=== PATIENT | male | born 1985 | race Caucasian/White ===

== ENCOUNTER 2017-03-29 11:44 | Emergency (ER) | payer OTHER ==
--- OUTSIDE RECORDS SUMMARY | 2017-03-29 12:39 | XMS REPORT ---
:1985 External Reference #:[id number] Author Organization [facility] Address [address] [address] Phone [phone] Care Team Providers Name Role Phone Benjamín Alejandre MD Primary Care Physician Unavailable Payers Type Date Identification Numbers Payment Provider Subscriber Commercial Effective: Policy Number: Froy Guerra 2016 [id number] Group Number: [id number] [address] PayID: [id number] [place] [address] Medigap Part B Expires: 2016 Policy Number: [id number] Medicaid Joshua Lockwood Group Name: 1 Nato [address] PayID: [id number] [place] [address] Commercial Expires: 2016 Policy Number: [id number] Froy Guerra Group Name: [id number] [address] PayID: [id number] [place] [address] Workers Compensation Onset: 2013 Policy Number: Patricia Guerra [id number] [employer] Group Number: [id number] [address] Group Name: [id number] [place] [address] PayID: [id number] Medigap Part B Expires: 2016 Group Name: 1 1 Medicaid Joshua Lockwood PayID: [id number] [address] [place] [address] Problems Date Description Provider Status Onset: 10/07/2014 Lateral epicondylitis Fide Alcaraz M.D. Active Onset: 03/30/2016 Insomnia Benjamín Alejandre M.D.,FACP Active Onset: 08/22/2016 Family hx of ischem heart dis Josh Cook M.D. Active and oth dis of the circ sys Onset: 02/13/2017 Late effect of open wound of Willy Stoddard MD Active extremities without tendon injury Onset: 02/13/2017 Bilateral carpal tunnel syndrome Willy Stoddard MD Active Family History Date Family Member(s) Problem(s) Comments General [place] Father Heart Disease at the age of 38yrs Siblings 2 Social History Type Date Description Comments Marital Status Single Lives With Girlfriend Lives With Children Occupation Ho Occupation Currently Working [employer] Cigarette Use Former Cigarette Smoker ETOH Use Currently consumes alcohol ETOH Use Occasionally consumes alcohol Smoking Patient is a former smoker Started age 22;Quit April 2014; smoked max 2ppd & cigars occasionally Recreational Drug Use Denies Drug Use Exercise Type/Frequency Exercises sporadically General Hx Text 2 kids, 1 step Allergies, Adverse Reactions, Alerts Date Description Reaction Status Severity Comments 08/27/2013 NKDA active Medications Medication Date Status Form Strength Qnty SIG Indications Ordering Provider Meloxicam Active Tablets 7.5mg 60tabs 1 by mouth Benjamín 017 twice a D. Pili, day as M.D.,FACP needed Zolpidem Active Tablets 10mg 30tabs 1/2 to 1 Benjamín Tartrate 016 tab by Jered Alejandre, mouth M.D.,FACP every night at bedtime as needed Oxycodone-Acet Active Tablets 5-325mg 40tabs 1 tabs by M77.11 Benjamín aminophen 016 mouth 4 Jered Alejandre, times a M.D.,FACP day as needed for pain M25.522 Triamcinolone 05/01/ Hx Cream 0.5% 30gm apply twice S40.86 Ken Odell NP Acetonide 2017 - daily to the 2D 09/06/ affected area 2017 Percocet 01/16/ Hx Tablets 5-325m 45tabs 1 by mouth bid Fide 2016 - g kelly Alcaraz M.D. 2016 Ketorolac 01/15/ Hx Tablets 10mg 10tabs No longer Fide Tromethamine 2016 - taking. one Tere Alcaraz 09/06/ tablet every 8 2017 hours for pain as needed Percocet 01/15/ Hx Tablets 2.5-32 2tabs one tablet Fide 2016 - 5mg every 8 hours Tere Alcaraz 03/30/ as needed for 2017 pain Trazodone HCL 05/17/ Hx Tablets 50mg 60tabs 1-2 tablets at G47.00 Ken Odell NP 2016 - bedtime as 06/10/ needed. 2016 Lidoderm 04/07/ Hx Patches 5% 30unit apply daily as M25.52 Fide 2016 - s needed for 2 Tere Alcaraz 05/17/ elbow pain 2016 remove after 12 hours, wait [address] another Oxycodone-Acetaminop 02/03/ Hx Tablets 5-325m 15tabs 1 tab by mouth gardenia Chavez 2014 - 2- 3 times a M.D. 04/13/ day as needed 2015 for pain Oxycodone-Acetaminop 01/20/ Hx Tablets 5-325m 30tabs 1 tab by mouth Fide varner 2014 - bid as needed Tere Alcaraz 04/13/ for pain 2015 Oxycodone-Acetaminop 10/28/ Hx Tablets 5-325m 15tabs 1 tabs by gardenia Pierce 2014 - mouth every 8 M.D. 04/13/ hours as 2015 needed pain No Active 10/07/ Hx Unknown Medications 2014 - 2014 Oxycodone-Acetaminop 10/07/ Hx Tablets 5-325m 20tabs 1 by mouth q 8 726.32 gardenia Pierce 2014 - hours prn pain M.D. 2014 Oxycodone-Acetaminop 09/23/ Hx Tablets 5-325m 80tabs take 1 to 2 gardenia Gibbons 2014 - tablets by Agustina.DAnne 10/05/ mouth every 6 2014 to 8 hours as needed pain Hydrocodone-Acetamin 09/16/ Hx Tablets 5-325m 30tabs 1-2 by mouth Fide becerril 2014 - g q4-6 hour as Tere Alcaraz 10/05/ needed pain 2014 Amoxicillin 09/16/ Hx Capsules 12caps Fide 2014 Mateus Alcaraz M.D. 2014 No Active 07/15/ Hx Unknown Medications 2014 - 2014 Gabapentin 04/22/ Hx Capsules 100mg 90caps 1 by mouth Fide 2015 - three times a Tere Alcaraz day 2014 No Active 02/02/ Hx Unknown Medications 2013 - 2013 Hydrocodone-Acetamin 02/02/ Hx Tablets 5-325m 30tabs 1by mouth q6 Fide ophen 2014 - g hour as needed Tere Alcaraz 05/05/ pain 2014 Tramadol 09/03/ Hx Tablets 37.5-3 20tabs 1 tablets Fide Hydrochloride/Acetam 2014 - 25mg every 6 hours Tere Alcaraz inophen 02/02/ as needed pain 2013 Oxycodone-Acetaminop 08/27/ Hx Tablets 5-325m 20tabs 1 by mouth Fide hen 2014 - g q4-6 hour as Tere Alcaraz 02/02/ needed pain 2013 Oxycodone HCL / Hx Tablets 30tabs 1-2 by mouth Unknown 0000 - four times a day as needed 2013 Meloxicam / Hx Tablets 15mg 30tabs 1 by mouth Unknown 0000 - every day 2013 Vicodin / Hx Tablets 5-500m 1 every 4-6 Unknown 0000 - g hours as 10/05/ needed 2014 Ibuprofen 00/00/ Hx Tablets 800mg by mouth three Unknown 0000 - times a day as needed 2015 Amoxicillin /00/ Hx Tablets 875mg 1 by mouth Unknown 0000 - twice a day 2015 Ibuprofen /00/ Hx Capsules 200mg as needed Unknown 0000 - 2016 Medications Administered in Office Medication Date Status Form Strength Qnty SIG Indications Ordering Provider Depomedrol Administered Injection Fide 80MG 015 Tere Alcaraz Immunizations CPT Code Status Date Vaccine Lot # [id number] Given 08/07/2016 Tetanus And Diptheria (Td) For Adult Use Preservative Free Vital Signs Date Vital Result Comment 03/06/2017 Weight 235.00 lb w/boots on Heart Rate 116 /min BP Systolic Sitting 160 mmHg BP Diastolic Sitting 90 mmHg O2 % BldC Oximetry 98 % 02/13/2017 Height 70.5 inches 5'10.50" Weight 237.00 lb Heart Rate 90 /min BP Systolic 140 mmHg BP Diastolic 86 mmHg Body Temperature 98.6 F BMI (Body Mass Index) 33.5 kg/m2 01/30/2017 Weight 240.00 lb Heart Rate 100 /min BP Systolic Sitting 150 mmHg BP Diastolic Sitting 88 mmHg Body Temperature 98.4 F O2 % BldC Oximetry 98 % 10/20/2016 Weight 237.25 lb Heart Rate 115 /min BP Systolic Sitting 150 mmHg BP Diastolic Sitting 98 mmHg BP Systolic Recheck 136 mmHg BP Diastolic Recheck 104 mmHg Body Temperature 98.4 F O2 % BldC Oximetry 99 % 09/06/2016 Weight 229.38 lb Heart Rate 118 /min BP Systolic Sitting 160 mmHg BP Diastolic Sitting 86 mmHg Body Temperature 96.7 F O2 % BldC Oximetry 98 % 08/22/2016 Weight 232.00 lb Heart Rate 104 /min BP Systolic Sitting 140 mmHg BP Diastolic Sitting 94 mmHg Body Temperature 97.1 F O2 % BldC Oximetry 98 % 08/09/2016 Weight 242.38 lb Heart Rate 114 /min BP Systolic Sitting 142 mmHg BP Diastolic Sitting 90 mmHg Body Temperature 97.8 F O2 % BldC Oximetry 99 % 05/01/2016 Weight 241.00 lb with shoes Heart Rate 77 /min BP Systolic 140 mmHg BP Diastolic 100 mmHg Body Temperature 97.3 F O2 % BldC Oximetry 98 % 04/28/2016 Height 72 inches 6'0" Weight 228.38 lb Heart Rate 108 /min BP Systolic Sitting 122 mmHg BP Diastolic Sitting 94 mmHg Body Temperature 98.3 F O2 % BldC Oximetry 98 % BMI (Body Mass Index) 31.0 kg/m2 01/17/2016 Height 72 inches 6'0" Weight 235.00 lb Pain Level 8 BMI (Body Mass Index) 31.9 kg/m2 01/14/2016 Height 72 inches 6'0" Weight 235.00 lb Heart Rate 74 /min BP Systolic 142 mmHg BP Diastolic 86 mmHg Body Temperature 97.6 F O2 % BldC Oximetry 96 % BMI (Body Mass Index) 31.9 kg/m2 12/02/2015 Weight 240.00 lb Heart Rate 86 /min BP Systolic Sitting 130 mmHg BP Diastolic Sitting 84 mmHg Respiratory Rate 15 /min Body Temperature 98.6 F O2 % BldC Oximetry 98 % 12/01/2015 Height 72 inches 6'0" Weight 230.00 lb Pain Level 5 BMI (Body Mass Index) 31.2 kg/m2 10/06/2015 Height 72 inches 6'0" Weight 230.00 lb Heart Rate 72 /min BP Systolic 140 mmHg BP Diastolic 78 mmHg Pain Level 7 BMI (Body Mass Index) 31.2 kg/m2 08/25/2015 Heart Rate 80 /min BP Systolic Sitting 128 mmHg BP Diastolic Sitting 82 mmHg 06/23/2015 Heart Rate 82 /min BP Systolic Sitting 128 mmHg BP Diastolic Sitting 88 mmHg 05/26/2015 Heart Rate 80 /min BP Systolic Sitting 128 mmHg BP Diastolic Sitting 80 mmHg 05/18/2015 Heart Rate 91 /min BP Systolic Sitting 130 mmHg BP Diastolic Sitting 82 mmHg O2 % BldC Oximetry 99 % 04/14/2015 Height 71 inches 5'11" Weight 248.00 lb Heart Rate 91 /min BP Systolic Sitting 130 mmHg BP Diastolic Sitting 88 mmHg Body Temperature 97.9 F O2 % BldC Oximetry 98 % BMI (Body Mass Index) 34.6 kg/m2 04/07/2015 Heart Rate 78 /min BP Systolic Sitting 132 mmHg BP Diastolic Sitting 88 mmHg 03/10/2015 Heart Rate 80 /min BP Systolic Sitting 128 mmHg BP Diastolic Sitting 88 mmHg 02/03/2015 Heart Rate 84 /min BP Systolic Sitting 148 mmHg BP Diastolic Sitting 84 mmHg 01/20/2015 Height 72 inches 6'0" Weight 255.00 lb Heart Rate 96 /min BP Systolic Sitting 152 mmHg BP Diastolic Sitting 96 mmHg BMI (Body Mass Index) 34.6 kg/m2 12/23/2014 Weight 212.00 lb Heart Rate 88 /min BP Systolic Sitting 128 mmHg BP Diastolic Sitting 88 mmHg 11/25/2014 Heart Rate 80 /min BP Systolic Sitting 122 mmHg BP Diastolic Sitting 88 mmHg 10/28/2014 Heart Rate 88 /min BP Systolic Sitting 128 mmHg BP Diastolic Sitting 74 mmHg 09/16/2014 Height 72 inches 6'0" Weight 212.00 lb Heart Rate 80 /min BP Systolic Sitting 124 mmHg BP Diastolic Sitting 82 mmHg BMI (Body Mass Index) 28.7 kg/m2 08/12/2014 Heart Rate 64 /min BP Systolic Sitting 124 mmHg BP Diastolic Sitting 82 mmHg 07/15/2014 Heart Rate 76 /min BP Systolic Sitting 128 mmHg BP Diastolic Sitting 88 mmHg 06/24/2014 Heart Rate 88 /min BP Systolic Sitting 130 mmHg BP Diastolic Sitting 88 mmHg 06/08/2014 Heart Rate 104 /min BP Systolic Sitting 158 mmHg BP Diastolic Sitting 92 mmHg 05/06/2014 Heart Rate 84 /min BP Systolic Sitting 130 mmHg BP Diastolic Sitting 88 mmHg 04/22/2014 Heart Rate 88 /min BP Systolic Sitting 132 mmHg BP Diastolic Sitting 78 mmHg 09/03/2013 Heart Rate 80 /min BP Systolic Sitting 128 mmHg BP Diastolic Sitting 80 mmHg 08/27/2013 Height 72 inches 6'0" Weight 210.00 lb Heart Rate 80 /min BP Systolic Sitting 126 mmHg BP Diastolic Sitting 82 mmHg BMI (Body Mass Index) 28.5 kg/m2 Results Test Date Test Result H/L Range Note Lipid Profile (Trig/Chol/HDL) 01/30/2017 Triglycerides 331 mg/dL 1 Cholesterol 187 mg/dL 2 HDL Cholesterol 30.8 mg/dL 3 LDL Cholesterol 90 mg/dL 4 Comp Metabolic Panel 01/30/2017 Sodium 137 mmol/L 133-145 Potassium 3.9 mmol/L 3.5-5.0 Chloride 104 mmol/L 101-111 Co2 Carbon Dioxide 27 mmol/L 22-32 Anion Gap 6 mmol/L 2-11 Glucose 87 mg/dL 70-100 Blood Urea Nitrogen 12 mg/dL 6-24 Creatinine 0.92 mg/dL 0.67-1.17 BUN/Creatinine Ratio 13.0 8-20 Calcium 9.3 mg/dL 8.6-10.3 Total Protein 7.2 g/dL 6.4-8.9 Albumin 4.6 g/dL 3.2-5.2 Globulin 2.6 g/dL 2-4 Albumin/Globulin Ratio 1.8 1-3 Total Bilirubin 0.50 mg/dL 0.2-1.0 Alkaline Phosphatase 48 U/L 34-104 Alt 29 U/L 7-52 Ast 21 U/L 13-39 Egfr Non- 96.6 >60 Egfr 124.2 >60 5 Drug Abuse 20 Urine 04/28/2016 Urine Amphetamine Negative ng/mL 6 Urine Barbiturates Negative ng/mL 7 Urine Benzodiazepines Negative ng/mL 8 Urine Cocaine Negative ng/mL 9 Urine Phencyclidine Negative ng/mL Cutoff: 25 Urine Tetrahydrocannabinol Negative ng/mL Cutoff: 50 10 Creatinine 250.6 mg/dL Specific [place] 1.019 pH 6.1 Oxidants Negative 11 Adulterants Comment Normal Codeine, Ur Not Detected ng/mL Cutoff: 25 12 Hksudcu-1-akih-glucuronide, Ur Not Detected ng/mL 13 Morphine, Ur Not Detected ng/mL Cutoff: 25 14 Phvpiqrm-7-ievi-glucuronide, U Not Detected ng/mL 15 6-monoacetylmorphine, Ur Not Detected ng/mL Cutoff: 25 16 Hydrocodone, Ur Present ng/mL Cutoff: 25 17 Norhydrocodone, Ur Present ng/mL Cutoff: 25 18 Dihydrocodeine, Ur Not Detected ng/mL Cutoff: 25 19 Hydromorphone, Ur Not Detected ng/mL Cutoff: 25 20 Kvtwrbbpkstrs9uptxxiumnsooloy Present ng/mL 21 Oxycodone, Ur Present ng/mL Cutoff: 25 22 Noroxycodone, Ur Present ng/mL Cutoff: 25 23 Oxymorphone, Ur Present ng/mL Cutoff: 25 24 Nnrtfsygbfe-2-pobd-glucuronide Present ng/mL 25 Noroxymorphone, Ur Present ng/mL Cutoff: 25 26 Fentanyl, Ur Not Detected ng/mL Cutoff: 2 27 Norfentanyl, Ur Not Detected ng/mL Cutoff: 2 28 Meperidine, Ur Not Detected ng/mL Cutoff: 25 29 Normeperidine, Ur Not Detected ng/mL Cutoff: 25 30 Naloxone, Ur Not Detected ng/mL Cutoff: 25 31 Djaayioc-8-kycp-glucuronide, U Not Detected ng/mL 32 Methadone, Ur Not Detected ng/mL Cutoff: 25 33 Eddp, Ur Not Detected ng/mL Cutoff: 25 34 Propoxyphene, Ur Not Detected ng/mL Cutoff: 25 35 Norpropoxyphene, Ur Not Detected ng/mL Cutoff: 25 36 Tramadol, Ur Not Detected ng/mL Cutoff: 25 37 O-desmethyltramadol, Ur Not Detected ng/mL Cutoff: 25 38 Tapentadol, Ur Not Detected ng/mL Cutoff: 25 39 N-desmethyltapentadol, Ur Not Detected ng/mL Cutoff: 50 40 Jmgistwvke-bcrg-alwymuamqjj, U Not Detected ng/mL 41 Buprenorphine, Ur Not Detected ng/mL Cutoff: 5 42 Norbuprenorphine, Ur Not Detected ng/mL Cutoff: 5 43 Norbuprenorphine glucuronide Not Detected ng/mL Cutoff: 20 44 Opioid Interpretation See Comment 45 Laboratory test finding 09/22/2014 Surgical Pathology SEE RESULT BELOW 46 1 Desirable: <150 Borderline High: 150-199 High: 200-499 Very High: >500 2 Desirable: <200 Borderline High: 200-239 High: >239 3 Low: <40 Desirable: 40-60 High: >60 4 Desirable: <100 Near Optimal: 100-129 Borderline High: 130-159 High: 160-189 Very High: >189 5 Because ethnic data is not always readily available, this report includes an eGFR for both -Americans and non- Americans. The National Kidney Disease Education Program (NKDEP) does not endorse the use of the MDRD equation for patients that are not between the ages of 18 and 70, are , have extremes of body size, muscle mass, or nutritional status, or are non- or non-. According to the National Kidney Foundation, irrespective of diagnosis, the stage of the disease is based on the level of kidney function: Stage Description GFR(mL/min/1.73 m(2)) 1 Kidney damage with normal or decreased GFR 90 2 Kidney damage with mild decrease in GFR 60-89 3 Moderate decrease in GFR 30-59 4 Severe decrease in GFR 15-29 5 Kidney failure <15 (or dialysis) 6 REFERENCE VALUE Cutoff: 500 7 REFERENCE VALUE Cutoff: 200 8 REFERENCE VALUE Cutoff: 100 9 REFERENCE VALUE Cutoff: 150 10 ADDITIONAL INFORMATION This report is intended for use in clinical monitoring or management of patients. It is not intended for use in employment-related testing. 11 REFERENCE VALUE Cutoff: 200 mg/L 12 Tylenol 3 13 Metabolite of codeine REFERENCE VALUE Cutoff: 100 14 Chanel Edmonds, MS Contin; Also a minor metabolite (10%) of codeine and can be seen in low concentrations (<2,000 ng/mL) with poppy seed ingestion. 15 Metabolite of morphine REFERENCE VALUE Cutoff: 100 16 Metabolite of heroin 17 Lortab, [place], Vicodin; Also a very minor metabolite of codeine and impurity (<1%) of oxycodone. 18 Metabolite of hydrocodone 19 Metabolite of hydrocodone 20 Dilaudid, Exalgo; Also a metabolite of hydrocodone and a minor (<5%) metabolite of morphine. 21 Metabolite of hydromorphone REFERENCE VALUE Cutoff: 100 22 Endocet, Percocet, Oxycontin 23 Metabolite of oxycodone 24 Numorphan, Opana; Also a metabolite of oxycodone. 25 Metabolite of oxymorphone REFERENCE VALUE Cutoff: 100 26 Metabolite of oxymorphone 27 Actiq, Duragesic, [place]ent[place] 28 Metabolite of fentanyl 29 Demerol 30 Metabolite of meperidine 31 Narcan 32 Metabolite of naloxone REFERENCE VALUE Cutoff: 100 33 Dolophine 34 Metabolite of methadone 35 Darvon, Darvocet 36 Metabolite of propoxyphene 37 Tradol, Ultram, Ultracet 38 Metabolite of tramadol 39 Nucynta 40 Metabolite of tapentadol 41 Metabolite of tapentadol REFERENCE VALUE Cutoff: 100 42 Buprenex, Suboxone 43 Metabolite of buprenorphine 44 Metabolite of buprenorphine 45 Test detected the presence of hydrocodone, one of its metabolites (norhydrocodone), and nsohlaqfktdtx-5-dwvi-glucuronide (metabolite of hydromorphone). Suspect use of hydrocodone and hydromorphone within the past three days. Trace amounts of hydrocodone can also be found as an impurity in hydromorphone. Test detected the presence of oxycodone and several metabolites (noroxycodone, oxymorphone, noroxymorphone, and elkgisonlva-2-gzqg-glucuronide). Suspect use of oxycodone or possibly oxycodone and oxymorphone within the past three days. ADDITIONAL INFORMATION This test was developed and its performance characteristics determined by [facility] in a manner consistent with CLIA requirements. This test has not been cleared or approved by the U.S. Food and Drug Administration. Test Performed by: [facility] [employer] - [address] [address] 46 SEE RESULT BELOW Name: GREYSON GUERRA : [address]: Fide Alcaraz MD Acct: [id number] Unit: [id number] AGE: 28 Location: [facility] Re09/22/14 SEX: M Status: REG [facility] SPEC: [id number] TAYLOR: 09/22/14-[address]: Fide Alcaraz MD REQ: [id number] RECD: 09/22/14 STATUS: SOUT _ ORDERED: LEVEL III FINAL DIAGNOSIS Right lateral elbow tissue, resection: -- Articular cartilage with marked degenerative features and bone. -- Synovial tissue with fibrosis and neovascularization with myxoid degeneration. -- Incidental skeletal muscle fragments. PRE-OPERATIVE DIAGNOSIS Right elbow lateral epicondylitis GROSS DESCRIPTION The specimen is received in formalin labeled, Right Lateral Elbow Tissue, and consists of a 1.4 x 1.2 x 0.4 cm aggregate of rios-wasserman irregular rubbery soft tissue fragments and scant fat. The specimen is submitted entirely in one cassette. Signed (signature on file) Jasbir Hemphill MD 1237 END OF REPORT * ML=Testing performed at Main Lab DEPARTMENT OF PATHOLOGY, [address] [address] Jasbir Hemphill M.D. Director [facility] # [id number] Procedures Date CPT Code Description Status 09/22/2014 04030 Tenotomy Elbow Debridement W/Tendon Repair Or Completed Reattachement 07/15/2014 Injection Single Tendon Origin/Insertion Completed 07/15/2014 Injection Single Tendon Origin/Insertion Completed 02/02/2014 66350 Rad Exam; Elbow, Comp Completed 02/02/2014 21992 Rad Exam; Elbow, Comp Completed 09/22/2013 43529 Rad Exam; Wrist, Comp, Min 3 Views Completed 09/03/2013 44279 Rad Exam; Wrist, Comp, Min 3 Views Completed Encounters Type Date Location Provider CPT E/M Dx Office Visit 02/13/2017 [place] [address] S66.123D 1:45p Of C.M.AAnne G56.03 Office Visit 01/30/2017 11:40a [facility] Benjamín Alejandre, 09552 S61.213S Rukhsana hCand M.D.,FACP Z82.49 Office Visit 10/20/2016 2:20p [facility] Benjamín Alejandre, 51308 S61.213S Medicine Mateus Tbcristóbal Bai M.D.,FACP Office Visit 09/06/2016 1:30p [facility] Benjamín Alejandre, 88452 S61.213D Rukhsana Ignacio Tbcristóbal Bai M.D.,FACP Office Visit 08/22/2016 11:20a [facility] Josh Cook [address], M.D. F41.0 G47.00 Office Visit 08/09/2016 9:50a [facility] Benjamín Alejandre, 64918 S61.213A Rukhsana Ignacio Tbcristóbal Bai M.D.,FACP Office Visit 05/01/2016 9:00a [facility] [place] [address] G47.00 Rukhsana Chand S40.862D Office Visit 04/28/2016 1:00p [facility] Josh Cook 21860 M25.522 Medicine - Tbcristóbal Bai M.D. Office Visit 01/17/2016 11:30a [facility] Fide Alcaraz, 51859 M25.521 Of C.M.A. M.DAnne M25.522 M77.11 M77.12 Office Visit 01/14/2016 9:40a [facility] [place] [address] M25.521 [place] M25.522 Office Visit 12/02/2015 9:20a [facility] [place] [address] G47.00 - [place] Office Visit 12/01/2015 11:30a [facility] Fide Alcaraz, 31918 M77.11 Of C.M.A. M.D M77.12 G56.23 G56.21 G56.22 M77.11 M77.12 G56.23 Office Visit 10/06/2015 11:10a [facility] Fide Alcaraz 25093 M77.11 Of [facility] M77.12 G56.21 G56.22 G56.01 G56.02 Office Visit 08/25/2015 11:10a [facility] Fide Alcaraz, 70964 M77.11 Of [facility] M77.11 M77.12 M77.12 G56.21 G56.21 G56.22 G56.22 Office Visit 06/23/2015 3:00p [facility] Fide Alcaraz 95661 M77.11 Of [facility] M77.11 M77.12 M77.12 G56.21 G56.21 G56.22 G56.22 Office Visit 05/26/2015 1:40p [facility] Anuja Easton, 34584 M25.521 Of [facility] Office Visit 05/18/2015 9:40a [facility] [place] [address] G47.00 - [place] Office Visit 04/14/2015 2:00p [facility] Medicine Josh Cook 94101 Z00.00 - [facility] M77.10 E66.9 Office Visit 04/07/2015 2:40p [facility] Fide Alcaraz 69394 M77.11 Of [facility] Office Visit 03/10/2015 9:20a [facility] Anuja Easton 94710 M25.522 Of [facility] M25.521 G56.02 Office Visit 02/03/2015 10:45a [facility] Fide Alcaraz 77425 M77.12 Of [facility] M77.11 Office Visit 01/20/2015 11:00a [facility] Of Anuja Easton 45632 M77.12 [facility] M77.11 Office Visit 08/12/2014 9:30a [facility] Fide Alcaraz 52341 726.32 Of [facility] Office Visit 07/15/2014 9:30a [facility] Fide Alcaraz 76897 842.00 Of [facility] 842.00 726.32 726.32 Office Visit 02/02/2014 8:15a [facility] Fide Alcaraz 66597 719.43 Of [facility] 719.43 354.2 354.2 726.32 Office Visit 09/22/2013 8:45a [facility] Fide Alcaraz 57740 923.20 Of [facility] Office Visit 09/03/2013 8:00a [facility] Fide Alcaraz 24208 923.20 Of [facility] Office Visit 08/27/2013 10:30a [facility] Fide Alcaraz 99887 923.20 Of [facility] Plan of Care Future Appointment(s):03/27/2017 8:15 am - Willy Stoddard MD at [facility]/23/2018 - Benjamín Alejandre M.D.,FACPM25.511 Pain in right shoulderNew Therapy:Physical TherapyComments:This is rhomboid spasm. Continue treatment w/ meloxicam, heat, and massage to area. Cut back on heavy lifting. Can refill oxycodone for hand pain. See Dr. Stoddard as planned.
[2017-03-29 13:46] VITALS: BP 147/71
--- NOTE | 2017-03-29 13:48 | UC ---
Back Pain HPI - HPI Summary HPI Summary: 31 y/o male presents to the urgent care c/o lower back pain s/p falling on the front steps of his house yesterday around 1700PM. Pt reports he has Hx of B/L carpel tunnel syndrome and Rt elbow tendonitis s/p surgery for which he takes pain medication Rx by DR Benjamín Alejandre. He took some [place] yesterday to alleviate pain but this morning pain is worse w/ bending, lifting and sitting. Reymundo is 9/10 sharp and spasmodic radiating to the upper back at times. Pt denies Saddle anesthesia, urinary or fecal incontinence, urinary symptoms, abdominal pain, N/V/D, flank pain, chest pain, SOB. Pt states he also has Hx of back pain issues. . - History of Current Complaint Stated Complaint: BACK PAIN S/P FALL YESTERDAY Time Seen by Provider: 03/29/17 13:42 Onset/Duration: Sudden Onset, Lasting Days - 1 day, Still Present Timing: Constant Severity Initially: Moderate Severity Currently: Moderate Pain Intensity: 9 Pain Scale Used: 0-10 Numeric Back Pain: Is Discrete @ - lower back, Radiates To - upper back at times Character: Sharp, Spasmodic Aggravating Factor(s): Movement, Lifting, Bending, Walking Alleviating Factor(s): Rest, OTC Meds Associated Signs And Symptoms: Positive: Pain with Weight Bearing. Negative: Swelling, Redness, Bruising, Fever, Weakness, Numbness, Tingling, Abdominal Pain , Flank Pain, Bladder Incontinence, Bowel Incontinence - Risk Factors AAA Risk Factors: Negative TAD Risk Factors: Negative Cauda Equina Risk Factors: Negative Epidural Abscess Risk Factors: Negative - Allergies/Home Medications Allergies/Adverse Reactions: Allergies Allergy/AdvReac Type Severity Reaction Status Date / Time No Known Allergies Allergy Verified 03/29/17 13:36 Home Medications: Home Medications Zolpidem TAB* [Ambien TAB*] 10 mg PO BEDTIME PRN 03/29/17 [History Confirmed ] oxyCODONE/Acetamin 5/325 MG* [Percocet 5/325 TAB*] 1 tab PO Q4H PRN 03/29/17 [ History Confirmed 03/29/17] PMH/Surg Hx/FS Hx/Imm Hx Previously Healthy: Yes Other Neurological History: B/L carpal tunnel s/p surgery - Surgical History Surgical History: Yes Surgery Procedure, Year, and Place: TONSILLECTOMY A CHILD. RIGHT ELBOW SURGERY - Family History Known Family History: Positive: Diabetes - Social History Occupation: Employed Full-time Lives: With Family Alcohol Use: Rare Substance Use Type: None Smoking Status (MU): Former Smoker Type: Cigarettes, Smokeless Tobacco Amount Used/How Often: 2 CANS PER WK Length of Time of Smoking/Using Tobacco: 2 years Have You Smoked in the Last Year: Yes When Did the Patient Quit Smoking/Using Tobacco: 04/12/14 Review of Systems Constitutional: Negative Skin: Negative Eyes: Negative ENT: Negative Respiratory: Negative Cardiovascular: Negative Gastrointestinal: Negative Genitourinary: Negative Motor: Negative Neurovascular: Negative Musculoskeletal: Decreased ROM - lower back, Other: - acute lower back pain s/p fall Neurological: Negative Psychological: Negative Is Patient Immunocompromised?: No All Other Systems Reviewed And Are Negative: Yes Physical Exam Triage Information Reviewed: Yes Vital Signs: Initial Vital Signs Temp 99.5 F 03/29/17 13:40 Pulse 102 03/29/17 13:40 Resp 16 03/29/17 13:40 BP 147/71 03/29/17 13:40 Pulse Ox 100 03/29/17 13:40 - Additional Comments Appearance: Well-Appearing, Well-Nourished, Thin female sitting in the examining table w/o any apparent distress. Vital Signs Reviewed: Yes Eyes: Positive: Conjunctiva Clear - PERRLA, EOMI. ENT: Positive: Normal ENT inspection, Hearing grossly normal, Pharynx normal, TMs normal, Uvula midline Neck: Positive: Supple, Nontender, No Lymphadenopathy Respiratory: Positive: Chest non-tender, Lungs clear, Normal breath sounds, No respiratory distress Cardiovascular: Positive: RRR, No Murmur, Pulses Normal, Brisk Capillary Refill Abdomen Description: Positive: Nontender, No Organomegaly, Soft. Negative: CVA Tenderness (R), CVA Tenderness (L) Bowel Sounds: Positive: Present Musculoskeletal: Positive: Strength Intact, Other: - BACK: Patient walked into the urgent care room with symmetric ambulation, Mild signs of limping, no antalgic, PT able to bear weight. No signs of trauma, No masses palpated. Point tenderness at the level of L5-S1, Rt paraspinal muscle tenderness w/ spasm at the same level. No CVAT, no flank ecchymosis . No sacroiliac notch tenderness, No saddle anesthesia.ROM: limited due to pain, Straight Leg Raise: negative. Patellar reflexes: brisk, symmetric Muscle strength lower extremities. Dorsiflexion/ plantar flexion of ankles. Heel/ toe walk. Lower extremities: Femoral, popliteal, posterior tibial, and dorsalis pedis pulses WNL. Pt refuse rectal exam Neurological: Positive: Alert, Muscle Tone Normal Psychological Exam: Normal Skin Exam: Normal Back Pain Course/Dx - Course Course Of Treatment: 31 y/o male presents to the urgent care c/o lower back pain s/p falling on the front steps of his house yesterday around 1700PM. Pt reports he has Hx of B/L carpel tunnel syndrome and Rt elbow tendonitis s/p surgery for which he takes pain medication Rx by DR Benjamín Alejandre. He took some [place] yesterday to alleviate pain but this morning pain is worse w/ bending , lifting and sitting. Reymundo is 9/10 sharp and spasmodic radiating to the upper back at times. Pt denies Saddle anesthesia, urinary or fecal incontinence, urinary symptoms, abdominal pain, N/V/D, flank pain, chest pain, SOB. Pt states he also has Hx of back pain issues. Hx obtained.PE: Point tenderness at the level of the L5-S1 and left paraspinal muscle spasm at the same level on examination. Lumbosacral X-ray ordered, Impression: Mild diffuse loss of intervertebral disc height, otherwise unremarkable lumbar spine radiogragh as per radiologist. Pt Pt given a Toradol IM inj at the clinic. Given by nurse. Pt tolerated well medication pain decrease. Pt Rx Naproxen PO, flexeril PO . Patient was instructed to the f/u wit orthopedic Dr stoddard in 1 week if symptoms do not improve or worsen. Pt's BP is elevated today advised to decrease salt in diet, monitor BP and f/u with PCP for further management. Patient is able to ambulate freely w/o aid or limp. Plan of care was discussed with the patient and patient understands and agrees. All questions were answered at patient satisfaction. Pt left clinic hemodynamically stable. - Differential Dx/Diagnosis Differential Diagnosis/HQI/PQRI: Compressive Cord Syndrome, Herniated Disc, Renal Colic, Strain, Sprain Provider Diagnoses: 1- Acute lower back pain. 2-Back spasm. 3- Elevated BP w/ o Hx of HTN Discharge - Discharge Plan Condition: Stable Disposition: HOME Prescriptions: Cyclobenzaprine TAB* [Flexeril 10 MG TAB*] 10 mg PO TID PRN #15 tab PRN Reason: Spasms - Back methylPREDNISolone [Medrol Dosepak 4 MG*] 4 mg PO .SEE LETY INSTRUCTION #1 lety Naproxen [Naproxen 500 mg] 500 mg PO Q8H PRN #30 tab PRN Reason: Pain Patient Education Materials: Acute Low Back Pain (ED), Low-Sodium Diet (ED), Muscle Spasm (ED) Forms: *Work Release Referrals: Benjamín Alejandre MD [Primary Care Provider] - 3 Days Willy Stoddard MD [Medical Doctor] - Additional Instructions: 1- Please take Naproxen PO as directed after meals for pain. 2- Take Flexeril PO as directed for muscle spasm. Please do not drive while taking the medication. 3- Wear a back support. Avoid strenuous exercise of heavy lifting. 4- Please follow up with Orthopedic Dr Stoddard or your PCP in 1 week if not improvement of symptoms, for further management. 5- Your BP is elevated today. please decrease salt in your diet, monitor BP and if it continues to be elevated please f/u with your PCP for further management
[2017-03-29] MEDS ORDERED: Ketorolac INJ* 60 MG/2 ML VIAL IM ONE (13:57)
--- NOTE | 2017-03-29 14:34 | RAD ---
HISTORY: Acute back pain status post fall COMPARISONS: September 27, 2003 VIEWS: 5 , Frontal, lateral, coned-down lateral sacral, and bilateral oblique views of the lumbar spine. FINDINGS: ALIGNMENT: The alignment is normal. VERTEBRAL BODIES: The vertebral body heights are normal. The interpedicular distances are normal. JOINTS: The facet joints are normal. INTERVERTEBRAL DISCS: There is mild diffuse loss of intervertebral disc height. SOFT TISSUE: Unremarkable. OTHER: The pelvis is unremarkable. The lung bases are clear. IMPRESSION: UNREMARKABLE RADIOGRAPHS OF THE LUMBAR SPINE
== END 2017-03-29 15:00 | disposition home or self-care (01) ==
LOC: UCCORT 11:44
DX: M54.5 Low back pain (principal); M62.830 Muscle spasm of back; W10.9XXA Fall (on) (from) unspecified stairs and steps, initial encounter; Y92.009 Unspecified place in unspecified non-institutional (private) residence as the place of occurrence of the external cause
CPT/HCPCS: 72110; 99212; G0463; J1885

== ENCOUNTER 2017-05-14 11:54 | Day surgery (SDC) | payer MEDICAID, OTHER ==
[~2017-05-14 11:54] MED LIST: Buffered Lidocaine 0.9% SYRIN* 5 ML/SYR SYRINGE INTRADERM ONE; DiMENhydriNATE IV* 50 MG/ML VIAL IV PUSH PRN; Famotidine IV* 10 MG/ML 2 ML (20 mg) IV ONE; Morphine INJ* 2 MG/ML 1 ML CARPUJECT IV PRN; Naloxone* 0.4 MG/ML 1 ML VIAL IV PRN; PROCHLORPERAZINE INJ 5 MG/ML 2 ML VIAL IV PRN
[2017-05-14] MEDS ORDERED: Famotidine IV* 10 MG/ML 2 ML (20 mg) ONE (12:01)
[2017-05-14] MEDS ORDERED: ceFAZolin 1 GM in Dextrose (*) 2 GM/100 ML BAG IVPB ONE (12:02)
[2017-05-14] MEDS ORDERED: fentaNYL* 50 MCG/ML 2 ML VIAL (100 MCG VIAL) ONE ×3 (12:43→15:33)
[2017-05-14] MEDS ORDERED: Midazolam* 1 MG/ML 5 ML VIAL (5 MG) ONE (12:43)
[2017-05-14] MEDS ORDERED: Bupivacaine 0.25% SDV* 30 ML ONE (13:13)
[2017-05-14] MEDS ORDERED: Morphine INJ* 10 MG/ML 1 ML CARPUJECT ONE (13:40)
[2017-05-14] MEDS ORDERED: Lidocaine 2% PF * 5 ML VIAL ONE (13:52)
[2017-05-14] MEDS ORDERED: Ondansetron INJ* 2 MG/ML VIAL ONE (13:52)
[2017-05-14] MEDS ORDERED: Ketorolac INJ* 30 MG/ML 1 ML VIAL ONE (13:52)
[2017-05-14] MEDS ORDERED: Propofol* 10 MG/ML 20 ML BTL IV PUSH ONE (13:52)
[2017-05-14] MEDS ORDERED: Dexamethasone IV* 4 MG/ML 1 ML (4 MG) ONE (13:52)
[2017-05-14] MEDS: fentaNYL* 50 MCG/ML 2 ML VIAL (100 MCG VIAL) IV PRN ×4 (15:35→16:12)
[2017-05-14] MEDS ORDERED: oxyCODONE/Acetamin 5/325 MG* TAB ONE ×2 (15:38→15:48)
[2017-05-14] MEDS: oxyCODONE/Acetamin 5/325 MG* TAB PO PRN ×2 (15:49→15:50)
[2017-05-14 16:14] VITALS: BP 129/79
--- NOTE | 2017-05-15 13:28 | OP ---
DATE OF OPERATION: 05/14/17 - [facility] DATE OF : 87 SURGEON: Willy Stoddard MD SUPERVISOR [employer]: SALO Martinez. An home based assistant was needed for the entirety of the procedure to aid in positioning of the arm and retraction. ANESTHESIOLOGIST: Dr. Potter. ANESTHESIA: General. PRE-OP DIAGNOSES: 1. Left radial tunnel syndrome. 2. Left carpal tunnel syndrome. POST-OP DIAGNOSES: 1. Left radial tunnel syndrome. 2. Left carpal tunnel syndrome. OPERATIVE PROCEDURE: 1. Left open radial tunnel release. 2. Left carpal tunnel release. INDICATIONS: Greyson has had progressive symptoms over quite some time. His symptoms were consistent with carpal tunnel syndrome. Additionally, he is having a lot of dorsal radial forearm and lateral elbow pain. He has absolutely no tenderness over the lateral epicondyle, but severe tenderness over the radial tunnel a few centimeters distal to that, and he is very tender just on the medial edge of the brachioradialis right over the radial nerve there. He is looking to get some relief. I talked to him about his risks and benefits. He had wanted to proceed with surgical release of the nerves. Additionally, he does have flexor tendon adhesions after his deep flexor tendon repair. We are observing that while we take care of the nerves. Of note, Greyson did have a prior lateral epicondylitis debridement by Dr. Alcaraz from which he got no improvement. ESTIMATED BLOOD LOSS: 5 mL. COMPLICATIONS: None. FINDINGS: There was a lot of compression right at the leading edge of the supinator fascia and also right where the arcade of Frohse was located. DESCRIPTION OF PROCEDURE: Greyson was seen in the preoperative holding area. The correct side, site, and procedure were identified. We came back to the operating room where the arm was prepped and draped in the usual fashion. A time-out was performed. I exsanguinated the arm with Esmarch and the tourniquet was inflated to 275 mmHg. I made a 2 to 3 cm longitudinal incision in the standard location for an open carpal tunnel release. Dissection was carried down through the subcutaneous tissue and palmar fascia. The transverse carpal ligament was released just off the radial aspect of the hook of the hamate. The release was carried out from distal to proximal. Proximally, the fascia and subcutaneous tissue was released and retracted volarly and ulnarly and then the tenotomy scissors were used under direct visualization to release the remainder of the transverse carpal ligament and distal antebrachial fascia to the level several centimeters proximal to the wrist flexion crease. I then turned my attention to the radial tunnel area. A 10-cm longitudinal incision was made directly over the brachio-radialis muscle. Dissection was carried down. The lateral antebrachial cutaneous nerve was not encountered. Full- thickness flaps were raised right off of the fascia. I identified the fascia overlying the interval between the brachioradialis and the ECRL muscles. This interval was used and we bluntly dissected down to the radial nerve. Using this interval, we had the fat overlying the radial nerve directly in our view. The branch point of the PIN and superficial branch of the radial nerves is very proximal right at the antecubital flexion crease area. The nerve was unroofed. I first decompressed the sensory branch. The fascia was released all the way from proximal to the antecubital fossa down distally. Once that was completely released, I came back and turned my attention to the posterior interosseous nerve. The fascia was released overlying the nerve. There was a very prominent arcade of Frohse. This was tied off with couple of 2-0 silk tie sutures and then the radial artery was cut using the tenotomy scissors. The nerve was actually quite compressed in this area. Once this was released, this gave us an excellent view of the leading edge of the supinator. The tenotomy scissors were used to release this. The nerve was then released throughout its course and the supinator. I did go ahead and release the proximal tendinous portion of the ECRB tendon as well. Once I had completely released the PIN proximally and distally and there was absolutely no compression on either branch of the radial nerve, I irrigated out the wound. Hemostasis was obtained with combination of the bipolar and the Bovie. The subcutaneous tissue was then reapproximated with 3-0 Vicryl. Skin was closed with 4-0 Monocryl and Steri-Strips. The carpal tunnel incision had been closed with 4-0 nylon suture. The operative areas were infiltrated with 0.25% plain Marcaine. The wounds were dressed with Xeroform, 4x4s, sterile Webril, and a long-arm splint, lateral buttress was applied. Tourniquet was deflated. The hand pinked up immediately. He was awoken up and taken to the recovery room in stable condition. [id number]/[facility] #: [id number] LUCIA
== END 2017-05-14 16:41 | disposition home or self-care (01) ==
LOC: OR 11:54
PROVIDERS: ATTEND Orthopaedic Surgery Hand Surgery
DX: G56.02 Carpal tunnel syndrome, left upper limb (principal); G58.8 Other specified mononeuropathies; Z87.891 Personal history of nicotine dependence; G89.29 Other chronic pain; M77.10 Lateral epicondylitis, unspecified elbow
CPT/HCPCS: A9270-GY; J0690; J1100; J1885; J2250; J2270; J2405; J2704; J3010

== ENCOUNTER 2017-11-19 06:11 | Day surgery (SDC) | payer OTHER ==
[~2017-11-19 06:11] MED LIST changes: +Dexamethasone TAB* 4 MG PO ONE; -Morphine INJ* 2 MG/ML 1 ML CARPUJECT IV PRN; +Morphine INJ* 2 MG/ML 1 ML SYRINGE (TWO MG - NEW SYRINGE VERSION) IV PRN; +Ondansetron INJ* 2 MG/ML VIAL ONE; +Scopolamine 1.5 mg* PATCH TRANSDERM PRN; +fentaNYL* 50 MCG/ML 2 ML VIAL (100 MCG VIAL) IV PRN
[2017-11-19] MEDS ORDERED: Dexamethasone TAB* 4 MG ONE (07:06)
[2017-11-19] MEDS ORDERED: Ondansetron ODT TAB* 4 MG ONE (07:06)
[2017-11-19] MEDS ORDERED: Famotidine IV* 10 MG/ML 2 ML (20 mg) ONE (07:06)
[2017-11-19] MEDS ORDERED: ceFAZolin 2 GM in NS PREMIX(*) 2 GM/100 ML BAG IVPB ONE (07:07)
[2017-11-19] MEDS ORDERED: Buffered Lidocaine 0.9% SYRIN* 5 ML/SYR SYRINGE ONE (07:07)
[2017-11-19] MEDS ORDERED: Bupivacaine 0.25% SDV* 30 ML ONE (07:18)
[2017-11-19] MEDS ORDERED: Bupivacaine 0.25% EPI 200,000* 30 ML SDV ONE (07:18)
[2017-11-19] MEDS ORDERED: fentaNYL* 50 MCG/ML 2 ML VIAL (100 MCG VIAL) ONE (07:46)
[2017-11-19] MEDS ORDERED: KETAMINE HCL* 50 MG/ML 10 ML VIAL ONE (07:46)
[2017-11-19] MEDS ORDERED: Midazolam* 1 MG/ML 5 ML VIAL (5 MG) ONE (07:47)
[2017-11-19] MEDS ORDERED: Ketorolac INJ* 30 MG/ML 1 ML VIAL ONE (09:24)
[2017-11-19] MEDS ORDERED: Morphine VIAL* 10 MG/ML 1 ML VIAL ONE (09:24)
[2017-11-19] MEDS ORDERED: Propofol* 10 MG/ML 20 ML BTL IV PUSH ONE (09:24)
[2017-11-19] MEDS ORDERED: Lidocaine 2% PF * 5 ML VIAL ONE (09:24)
[2017-11-19 12:19] VITALS: BP 130/89
[2017-11-19] MEDS ORDERED: oxyCODONE/Acetamin 5/325 MG* TAB ONE (12:38)
[2017-11-19] MEDS: oxyCODONE/Acetamin 5/325 MG* TAB PO PRN ×2 (12:40→12:41)
--- NOTE | 2017-11-19 16:22 | OP ---
DATE OF OPERATION: 11/19/17 - [facility] DATE OF : 87 SURGEON: Willy Stoddard MD PUTTY REMOVER: SALO Martinez. An management assistant was needed for the entirety of the procedure to aid in positioning of the arm and retraction. ANESTHESIOLOGIST: Dr. Potter. ANESTHESIA: General. PRE-OP DIAGNOSES: 1. Right radial tunnel syndrome. 2. Right cubital tunnel syndrome. 3. Right carpal tunnel syndrome. POST-OP DIAGNOSES: 1. Right radial tunnel syndrome. 2. Right cubital tunnel syndrome. 3. Right carpal tunnel syndrome. OPERATIVE PROCEDURE: 1. Right radial tunnel release. 2. Right in situ cubital tunnel release. 3. Right carpal tunnel release. INDICATIONS: Greyson is patient who has done very well on the contralateral side with a left carpal tunnel and radial tunnel release. He is having the similar symptoms on the right. He has had prior lateral epicondylitis surgery, which failed to relieve the pain in the area. However, on the contralateral side, where we did the radial tunnel release, this steadily alleviated the pain. Additionally, he is having a lot of numbness and tingling in the ulnar two digits. It is positional in nature. He has problems with putting any pressure over the elbow. We had talked about risks and benefits including risk of nerve injury. He wants to proceed with surgery. ESTIMATED BLOOD LOSS: 5 mL. COMPLICATIONS: None. FINDINGS: See above and below. DESCRIPTION OF PROCEDURE: Greyson was seen in the preoperative holding area. The correct side, site and procedure were identified. We came back to the operating room where the arm was prepped and draped in the usual fashion. The patient was positioned supine with the use of the hand table. A time-out was performed. The arm was exsanguinated with Esmarch and the tourniquet inflated to 250 mmHg. I first made a 2 to 3 cm longitudinal incision in the proximal palm in the typical location for an open carpal tunnel release. Dissection was carried down through the subcutaneous tissue and palmar fascia. The transverse carpal ligament was released just up to the radial aspect of the hook of the hamate. The release was completed distally and proximally with a tenotomy scissors under direct visualization. Once the entirety of the ligament in the distal antebrachial fascia had been released, we irrigated out the wound and the skin was closed with 4- 0 nylon suture. The arm was abducted and externally rotated. A made a curvilinear incision centered over Dutton ligament and dissection was carried down. The medial antebrachial nerve and cutaneous nerve branches were dissected out and preserved throughout the case. I then released the fascia just proximal to Dutton's ligament and carried this proximally past the arcade of Adams. I then came distally and released the Dutton's ligament, I then released the superficial FCU fascia. I split the two heads of the FCU and released the deep FCU fascia. There was a very prominent vein just adjacent to the ulnar nerve coursing through the cubital tunnel and so I went head and tied this up with a 3-0 silk tie and excised a portion of the vein to avoid any potential compression on the nerve. A portion of the distal medial head of the triceps was excised too as this was very prominent and could be compressing the nerve. At this point, everything was looking good. There was no instability of the nerve and so we irrigated out the wound. The subcutaneous tissue was reapproximated with 3-0 Vicryl and skin was closed with 3-0 Monocryl suture. Lastly, we turned our attention to the radial tunnel. A longitudinal incision was made over the brachioradialis muscle. Dissection was carried down the interval between brachioradialis and the ECR muscle was identified and the fascia overlying the interval was incised with the knife. I then bluntly brachioradialis from the ECRL muscle, this took me down to the superficial branch of the radial nerve. A self-retaining retractor was placed. I first decompressed the superficial branch of the radial nerve. I followed this all the way proximally until the bifurcation of the posterior interosseous nerve was identified. The nerve to ECRL was identified as well. This was preserved. I then dissected out the posterior interosseous nerve until a very prominent leash of Richy was identified. This was tied off with 3-0 silk ties and then the vessel was cut with tenotomy scissors. I then released the ECRB tendon origin to help alleviate any lateral epicondylitis symptoms. I then released the supinator fascia and decompressed the posterior interosseous nerve in its entirety through the supinator muscle until it was released distally all the way to the muscle. Great care was taken not to injure the nerve. Everything at this point was looking very good and decompressed. We irrigated out the wound. The skin was closed with 3-0 Monocryl. Both elbow wounds had Steri-Strips applied. Local anesthetic was infiltrated all about the area. The wounds were dressed and a long-arm splint was applied with the elbow flexed to 80 degrees. Tourniquet was deflated. The hand pinked up immediately. He was taken to the recovery room in stable condition. [id number]/[facility] #: [id number] LUCIA
[2017-11-22] MEDS ORDERED: Scopolamine PATCH Remove* 1 NOTE MISC PATCH OFF ONE (05:40)
== END 2017-11-19 13:04 | disposition home or self-care (01) ==
LOC: OR 06:11
PROVIDERS: ATTEND Orthopaedic Surgery Hand Surgery
DX: G56.31 Lesion of radial nerve, right upper limb (principal); G56.21 Lesion of ulnar nerve, right upper limb; G56.22 Lesion of ulnar nerve, left upper limb; Z87.891 Personal history of nicotine dependence
CPT/HCPCS: A9270-GY; J0690; J1885; J2250; J2270; J2704; J3010; J8540

== ENCOUNTER 2018-05-13 10:04 | Emergency (ER) | payer OTHER ==
[2018-05-13 10:30] VITALS: BP 136/94
--- NOTE | 2018-05-13 10:57 | UC ---
Back Pain HPI - HPI Summary HPI Summary: 32-year-old male comes in with a chief complaint of low back pain. Pain started about 3 weeks ago. It's in the lumbar region. It radiates into the right buttock and occasionally down the right leg to the level of the mid thigh. Pain is worse with movement twisting turning bending. Patient does have couple of positions that do decrease the pain. Pain is worse with movement especially of the right leg. Patient is not sure if the leg is weak or if the pain is keeping him from moving the leg. No difficulty controlling urine or bowels. Gets occasionally tingling in the right leg but it's not persistent. No known trauma. He has had back pain similar to this in the past but usually goes away after about a week. He has tried some ibuprofen without great relief. - History of Current Complaint Chief Complaint: UCBackPain Stated Complaint: LOWER BACK PAIN Time Seen by Provider: 05/13/18 10:42 Pain Intensity: 9 - Allergies/Home Medications Allergies/Adverse Reactions: Allergies Allergy/AdvReac Type Severity Reaction Status Date / Time No Known Allergies Allergy Verified 05/13/18 10:22 PMH/Surg Hx/FS Hx/Imm Hx Previously Healthy: Yes - Surgical History Surgical History: Yes Surgery Procedure, Year, and Place: TONSILLECTOMY A CHILD. RIGHT ELBOW SURGERY-epicondylitis. Left middle finger tendon repair (laceration). 07/2016. CARPAL TUNNEL RELEASE - BILATERAL. NERVE RELEASE BILATERAL ARMS - Family History Known Family History: Positive: Diabetes - Social History Alcohol Use: Occasionally Substance Use Type: Marijuana Substance Use Comment - Amount & Last Used: once in a great while, not often Smoking Status (MU): Former Smoker Type: Cigarettes, Smokeless Tobacco Amount Used/How Often: 1 ppd for a few years Length of Time of Smoking/Using Tobacco: 2 years Have You Smoked in the Last Year: No When Did the Patient Quit Smoking/Using Tobacco: 04/12/14 Household Exposure Type: Cigarettes Review of Systems All Other Systems Reviewed And Are Negative: Yes Constitutional: Positive: Negative Skin: Positive: Negative Eyes: Positive: Negative ENT: Positive: Negative Respiratory: Positive: Negative Cardiovascular: Positive: Negative Gastrointestinal: Positive: Negative Motor: Positive: Other - SEE HPI Neurovascular: Positive: Other - SEE HPI Musculoskeletal: Positive: Other: - SEE HPI Neurological: Positive: Other - SEE HPI Psychological: Positive: Negative Is Patient Immunocompromised?: No Physical Exam Triage Information Reviewed: Yes Appearance: Well-Appearing, Well-Nourished, Pain Distress - MILD WITH ROM Vital Signs: Initial Vital Signs Temp 99 F 05/13/18 10:22 Pulse 85 05/13/18 10:22 Resp 16 05/13/18 10:22 BP 136/94 05/13/18 10:22 Pulse Ox 99 05/13/18 10:22 Vital Signs Reviewed: Yes Eye Exam: Normal Eyes: Positive: Conjunctiva Clear Neck exam: Normal Neck: Positive: Supple, Nontender Respiratory: Positive: Lungs clear, Normal breath sounds, No respiratory distress Musculoskeletal: Positive: Other: - Low back is tender to palpation in the lower lumbar region and into the left buttock on the sciatic nerve distribution. Strength is 5 out of 5 for plantar flexion and dorsiflexion knee flexion extension bilaterally. On the right side patient has increased pain with dorsiflexion and plantarflexion knee flexion extension and right hip flexion. Patient also has pain in the back with left hip flexion. He does not have pain with the rest of the movements of his left leg. No sensation deficit. Neurological: Positive: Alert Psychological Exam: Normal Psychological: Positive: Age Appropriate Behavior Skin Exam: Normal Back Pain Course/Dx - Course Course Of Treatment: On examination today I do not find a neurologic deficit. Patient has increased pain with movement especially of the right leg strength 5 out of 5 on my exam. Plan is continue the ibuprofen and use a muscle relaxer. If that does not help enough then use [place]. Also given information about back exercises and stretches. We discussed that if there is any neurologic deficit symptoms he needs to get reevaluated again right away. - Differential Dx/Diagnosis Provider Diagnosis: Low back pain, Lumbar radiculopathy, right Discharge - Sign-Out/Discharge Documenting (check all that apply): Patient Departure All imaging exams completed and their final reports reviewed: No Studies - Discharge Plan Condition: Stable Disposition: HOME Prescriptions: Cyclobenzaprine TAB* [Flexeril 10 MG TAB*] 10 mg PO TID PRN #15 tab MDD 3 PRN Reason: Pain HYDROcodone/ACETAMIN 5-325 MG* [[place] 5-325 TAB*] 1 tab PO Q4H PRN #30 tab MDD 6 PRN Reason: Pain Patient Education Materials: Acute Low Back Pain (ED), Lumbar Radiculopathy (ED ), Lower Back Exercises (ED) Referrals: Brook Meyer MD [Primary Care Provider] - Additional Instructions: FOLLOW UP WITH YOUR DOCTOR IF NOT COMPLETELY IMPROVED. GET REEVALUATED SOONER IF YOUR CONDITION WORSENS; WEAKNESS, NUMBNESS, DIFFICULTY CONTROLLING BOWEL OR BLADDER OR ANY QUESTIONS OR CONCERNS. - Billing Disposition and Condition Condition: STABLE Disposition: Home
== END 2018-05-13 11:03 | disposition home or self-care (01) ==
LOC: UCCORT 10:04
DX: M54.5 Low back pain (principal); M54.16 Radiculopathy, lumbar region; Z87.891 Personal history of nicotine dependence
CPT/HCPCS: 99212; G0463

== ENCOUNTER 2018-05-26 08:17 | Emergency (ER) | payer OTHER ==
[2018-05-26 09:30] VITALS: BP 141/97
--- NOTE | 2018-05-26 09:49 | UC ---
Back Pain HPI - HPI Summary HPI Summary: 32 yo male with LBP 3 weeks decreased ROM at times radiates to right buttock and post thigh occ legs buckle most comfortable laying on left side with knees drawn up no prior hx LBP no bowel or bladder dys Just got car was unable to see PCP due to lack of transportation - History of Current Complaint Chief Complaint: UCBackPain Stated Complaint: LOWER BACK PAIN Time Seen by Provider: 05/26/18 09:29 Hx Obtained From: Patient Onset/Duration: Gradual Onset, Lasting Weeks Timing: Constant Severity Initially: Severe Severity Currently: Severe Pain Intensity: 9 Pain Scale Used: 0-10 Numeric Back Pain: Is Diffuse, Radiates To - right buttock to mid thigh Character: Aching, Throbbing, Spasmodic Aggravating Factor(s): Movement, Lifting, Bending Alleviating Factor(s): Rest, Other - meds Associated Signs And Symptoms: Positive: Negative Full Body (No Head): 1 - pain here 2 - radiates here - Allergies/Home Medications Allergies/Adverse Reactions: Allergies Allergy/AdvReac Type Severity Reaction Status Date / Time No Known Allergies Allergy Verified 05/26/18 09:30 PMH/Surg Hx/FS Hx/Imm Hx Previously Healthy: Yes - Surgical History Surgical History: Yes Surgery Procedure, Year, and Place: TONSILLECTOMY A CHILD. RIGHT ELBOW SURGERY-epicondylitis. Left middle finger tendon repair (laceration). 07/2016. CARPAL TUNNEL RELEASE - BILATERAL. NERVE RELEASE BILATERAL ARMS - Family History Known Family History: Positive: Hypertension, Diabetes - Social History Alcohol Use: None Substance Use Type: None Substance Use Comment - Amount & Last Used: once in a great while, not often Smoking Status (MU): Former Smoker Type: Cigarettes, Smokeless Tobacco Amount Used/How Often: 1 ppd for a few years Length of Time of Smoking/Using Tobacco: 4 years Have You Smoked in the Last Year: No When Did the Patient Quit Smoking/Using Tobacco: 04/12/14 Household Exposure Type: Cigarettes Review of Systems All Other Systems Reviewed And Are Negative: Yes Constitutional: Positive: Negative Skin: Positive: Negative Eyes: Positive: Negative ENT: Positive: Negative Respiratory: Positive: Negative Cardiovascular: Positive: Negative Gastrointestinal: Positive: Negative Motor: Positive: Negative Neurovascular: Positive: Negative Musculoskeletal: Positive: Myalgia - lower back /right buttock Neurological: Positive: Negative Psychological: Positive: Negative Physical Exam Triage Information Reviewed: Yes Appearance: Well-Appearing, Well-Nourished, Pain Distress Vital Signs: Initial Vital Signs Temp 97.9 F 05/26/18 09:18 Pulse 90 05/26/18 09:18 Resp 20 05/26/18 09:18 BP 141/97 05/26/18 09:18 Pulse Ox 100 05/26/18 09:18 Eyes: Positive: Conjunctiva Clear ENT: Positive: Nasal congestion Neck: Positive: Supple, Nontender Respiratory: Positive: Lungs clear, Normal breath sounds, No respiratory distress Cardiovascular: Positive: RRR, No Murmur Musculoskeletal: Positive: ROM Intact, No Edema Neurological Exam: Normal Neurological: Positive: Alert Psychological Exam: Normal Skin Exam: Normal Back Pain Course/Dx - Differential Dx/Diagnosis Provider Diagnosis: Acute lumbar myofascial strain, Sciatica associated with disorder of lumbar spine Discharge - Sign-Out/Discharge Documenting (check all that apply): Patient Departure All imaging exams completed and their final reports reviewed: No Studies - Discharge Plan Condition: Stable Disposition: HOME Prescriptions: Cyclobenzaprine TAB* [Flexeril TAB*] 10 mg PO TID PRN #21 tab PRN Reason: Spasms oxyCODONE/Acetamin 5/325 MG* [Percocet 5/325 TAB*] 1 tab PO Q6H PRN #16 tab MDD 4 PRN Reason: Pain Patient Education Materials: Low Back Strain (ED) Referrals: Brook Meyer MD [Primary Care Provider] - As Soon As Possible Additional Instructions: aleve 2 twice daily with food PT consult Opioid-containing medications can cause drowsiness and sedation. You t should not drive or operate machinery or similar activities while taking this medication. Opioids can also cause a positive drug screen, and can be habit- forming. You should follow the instructions exactly and not take any extra medication. Opioid medications should be stored in a secure manner to avoid diversion or theft. You should not drink alcohol while taking these medications - Billing Disposition and Condition Condition: STABLE Disposition: Home
[2018-05-26] MEDS ORDERED: Ketorolac INJ* 30 MG/ML 1 ML VIAL IM ONE (10:01)
== END 2018-05-26 10:29 | disposition home or self-care (01) ==
LOC: UCCORT 08:17
DX: S39.012A Strain of muscle, fascia and tendon of lower back, initial encounter (principal); X58.XXXA Exposure to other specified factors, initial encounter; Y92.9 Unspecified place or not applicable; M54.41 Lumbago with sciatica, right side; Z87.891 Personal history of nicotine dependence
CPT/HCPCS: 96372; 99212; G0463; J1885

== ENCOUNTER 2018-08-13 13:50 | Emergency (ER) | payer OTHER ==
[2018-08-13 14:22] VITALS: BP 147/96
--- NOTE | 2018-08-13 14:43 | UC ---
Back Pain HPI - HPI Summary HPI Summary: Per editing intern: "Seen in 05/2018 and treated for sciatica pain. Recommended PT, flexeril and oxy PRN. Pt not able to follow up for PT. Symptoms resolved. Helping friend in yard Sunday, felt his right leg go numb and severe low back pain. No loss of bowel or bladder." -denies loss of bowel/bladder function. went to ER last month for this and rpeorst xrays showing degeneration. has not gone to PT and was told PT is required before MRI can be done. has not seen surgeon. -taking 1600mgs ERICA and 1500mgs APAP at a time. - History of Current Complaint Chief Complaint: UCBackPain Stated Complaint: RT LEG NUMBNESS/LOW BACK PAIN Time Seen by Provider: 08/13/18 14:41 Pain Intensity: 10 - Allergies/Home Medications Allergies/Adverse Reactions: Allergies Allergy/AdvReac Type Severity Reaction Status Date / Time No Known Allergies Allergy Verified 08/13/18 14:19 Home Medications: Home Medications Acetaminophen [Tylenol Extra Strength] 1,500 mg PO ONCE PRN 08/13/18 [History Confirmed 08/13/18] PMH/Surg Hx/FS Hx/Imm Hx Previously Healthy: Yes - Surgical History Surgical History: Yes Surgery Procedure, Year, and Place: TONSILLECTOMY A CHILD. RIGHT ELBOW SURGERY-epicondylitis. Left middle finger tendon repair (laceration). 07/2016. CARPAL TUNNEL RELEASE - BILATERAL. NERVE RELEASE BILATERAL ARMS - Family History Known Family History: Positive: Hypertension, Diabetes - Social History Alcohol Use: None Substance Use Type: Marijuana Substance Use Comment - Amount & Last Used: once in a great while, not often Smoking Status (MU): Former Smoker Type: Cigarettes, Smokeless Tobacco Amount Used/How Often: 1 ppd for a few years Length of Time of Smoking/Using Tobacco: 4 years Have You Smoked in the Last Year: No When Did the Patient Quit Smoking/Using Tobacco: 04/12/14 Household Exposure Type: Cigarettes Review of Systems All Other Systems Reviewed And Are Negative: Yes Constitutional: Positive: Negative Skin: Positive: Negative Eyes: Positive: Negative ENT: Positive: Negative Respiratory: Positive: Negative Cardiovascular: Positive: Negative Gastrointestinal: Positive: Negative Genitourinary: Positive: Negative Motor: Positive: Other - see above Neurovascular: Positive: Negative Musculoskeletal: Positive: Other: - see above Neurological: Positive: Paresthesia - rt leg Psychological: Positive: Negative Is Patient Immunocompromised?: No Physical Exam Triage Information Reviewed: Yes Appearance: Pain Distress Vital Signs: Initial Vital Signs Temp 100.4 F 08/13/18 14:15 Pulse 115 08/13/18 14:15 Resp 21 08/13/18 14:15 BP 147/96 08/13/18 14:15 Pulse Ox 100 08/13/18 14:15 Vital Signs Reviewed: Yes Eye Exam: Normal Neck exam: Normal Respiratory Exam: Normal Respiratory: Positive: Lungs clear, Normal breath sounds, No respiratory distress, No accessory muscle use. Negative: Crackles, Rhonchi, Stridor, Wheezing Cardiovascular Exam: Normal Cardiovascular: Positive: RRR - heart rate 90 upon my exam. Abdominal Exam: Normal Musculoskeletal: Positive: Other: - l/s spine- NT, limited ROM d/t pain. + ipsilateral > contralateral SLR. + 1 b/l equal patellar reflexes. sensation intact to LT. CR brisk. Neurological Exam: Normal Neurological: Positive: Muscle Tone Normal Psychological Exam: Normal Skin Exam: Normal Skin: Negative: Rashes Back Pain Course/Dx - Course Course Of Treatment: - BP is elevated bc pain likely. recommend that he follows it and follows w/ PCP for BP. hear rate reduced to 90 upon my exam -ISTOp ref # [id number] roseanne cai rxs prescribed over the past year. #16 on 06/13, #16 05/26/18, #30 05/13/18 and 10 additional rxs in the past 1 year from various providers. We discussed that narcotic pain meds are not indicated to treat non-malignant pain. He also uses MJ that may increase the risk of depression and suicide concommitently used w/ narcotics. Highly recommend PT and calling the spine nurse navigator to help speed up eval. -declines xrays as he reports they were done in the hospital when he went in June -reviewd safe doses of ibuprefoen and APAP. states he has them at home and declines rx./ Mom dropped him off anf he is calling for a ride. he does have a car now and can get to appts he reports. no driving with muscle relaxant -taught extension exercises. - Differential Dx/Diagnosis Differential Diagnosis/HQI/PQRI: Strain, Sprain Provider Diagnosis: Radiculopathy of lumbosacral region Discharge - Sign-Out/Discharge Documenting (check all that apply): Patient Departure All imaging exams completed and their final reports reviewed: No Studies - Discharge Plan Condition: Stable Disposition: HOME Prescriptions: Methocarbamol TAB* [Robaxin 500 MG TAB*] 500 mg PO TID PRN 10 Days #30 tab PRN Reason: Pain Patient Education Materials: Lumbar Radiculopathy (ED), Lower Back Exercises ( ED) Referrals: Brook Meyer MD [Primary Care Provider] - Negrito Hugo MD [Medical Doctor] - Janelle Wharton Ae, RN [Registered Nurse] - Additional Instructions: -Please make sure to follow up with physical therapy as soon as possible, we are giving you an updated prescription today. You should be evaluated by an orthopedic soon. MRI is likely indicated at this point. I have provided you with the contact information for the spine navigator Janelle De Oliveira [phone] above. Please call her to get your appointments/evaluation/treatment set up. -Do not take more then 4000mgs tylenol per day (1000mgs every 6-8 hrs maximum dose) or more than 800mgs ibuprofen every 8 hrs (max 2400mgs per day). These can be very toxic to your liver and kidneys and are not effective at higher than prescribed doses. - Billing Disposition and Condition Condition: STABLE Disposition: Home
[2018-08-13] MEDS ORDERED: Ibuprofen TAB* 600 MG PO ONE (14:55)
[2018-08-13] MEDS ORDERED: Cyclobenzaprine TAB* 10 MG PO ONE (14:55)
== END 2018-08-13 15:18 | disposition home or self-care (01) ==
LOC: UCCORT 13:50
DX: M54.17 Radiculopathy, lumbosacral region (principal); Z87.891 Personal history of nicotine dependence
CPT/HCPCS: 99212; A9270-GY; G0463

== ENCOUNTER 2018-10-31 07:29 | Day surgery (SDC) | payer OTHER ==
[~2018-10-31 07:29] MED LIST changes: -Buffered Lidocaine 0.9% SYRIN* 5 ML/SYR SYRINGE INTRADERM ONE; +Buffered Lidocaine 1% SYRIN* 1 ML/SYRINGE INTRADERM ONE; -Dexamethasone TAB* 4 MG PO ONE; -DiMENhydriNATE IV* 50 MG/ML VIAL IV PUSH PRN; -Famotidine IV* 10 MG/ML 2 ML (20 mg) IV ONE; +Lactated Ringers 1000 ML Bag* 1,000 ML IV SCH; -Morphine INJ* 2 MG/ML 1 ML SYRINGE (TWO MG - NEW SYRINGE VERSION) IV PRN; -Naloxone* 0.4 MG/ML 1 ML VIAL IV PRN; -Ondansetron INJ* 2 MG/ML VIAL ONE; -PROCHLORPERAZINE INJ 5 MG/ML 2 ML VIAL IV PRN; -Scopolamine 1.5 mg* PATCH TRANSDERM PRN; -fentaNYL* 50 MCG/ML 2 ML VIAL (100 MCG VIAL) IV PRN
[2018-10-31] MEDS ORDERED: ceFAZolin 2 GM PREMIX in ORs 2 GM/50 ML BAG ONE (07:43)
[2018-10-31] MEDS ORDERED: Sodium Citrate/Citric Acid* 15 ML UDC ONE (07:45)
[2018-10-31] MEDS ORDERED: Buffered Lidocaine 1% SYRIN* 1 ML/SYRINGE INTRADERM ONE (08:01)
[2018-10-31] MEDS: Sodium Citrate/Citric Acid* 15 ML UDC PO ONE ×2 (08:15→09:49)
[2018-10-31] MEDS ORDERED: Bupivacaine 0.25% SDV* 30 ML ONE (09:02)
[2018-10-31] MEDS ORDERED: Midazolam* 1 MG/ML 2 ML VIAL (2 MG) ONE (09:32)
[2018-10-31] MEDS ORDERED: Propofol* 10 MG/ML 20 ML BTL ONE ×2 (09:33→10:14)
[2018-10-31] MEDS ORDERED: Dexamethasone IV* 4 MG/ML 1 ML (4 MG) ONE (10:14)
[2018-10-31] MEDS ORDERED: Ondansetron INJ* 2 MG/ML VIAL ONE (10:14)
[2018-10-31] MEDS ORDERED: fentaNYL* 50 MCG/ML 2 ML VIAL (100 MCG VIAL) ONE ×2 (10:14→10:41)
[2018-10-31] MEDS ORDERED: fentaNYL* 50 MCG/ML 2 ML VIAL (100 MCG VIAL) IV PRN (11:38)
[2018-10-31] MEDS ORDERED: Naloxone* 0.4 MG/ML 1 ML VIAL IV PRN (11:38)
[2018-10-31] MEDS ORDERED: Ketorolac INJ* 30 MG/ML 1 ML VIAL ONE (12:51)
[2018-10-31] MEDS ORDERED: oxyCODONE/Acetamin 5/325 MG* TAB ONE (13:05)
[2018-10-31 13:51] VITALS: BP 136/73
--- NOTE | 2018-10-31 18:00 | OP ---
DATE OF OPERATION: 10/31/18 - [facility] DATE OF : 87 SURGEON: Willy Stoddard MD CUTTER OPERATOR TILE: SALO Martinez. An fleet administrative assistant was needed for the entirety of the procedure to aid in positioning of the arm and retraction. ANESTHESIOLOGIST: Dr. العلي followed by Dr. Huff. ANESTHESIA: General. 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 OPERATIVE PROCEDURE: Right elbow transmuscular transposition with revision decompression and nerve wrapping. INDICATIONS: Greyson did very well with ulnar nerve decompression and radial tunnel decompression, as well the arm was feeling much better; however, few months ago, he began to develop ulnar nerve instability. He gets very painful snapping of the ulnar nerve. It is really quite symptomatic to him. We had talked about his options. He had wanted to proceed with revision decompression and transposition. ESTIMATED BLOOD LOSS: 5 mL. COMPLICATIONS: None. FINDINGS: See above and below. DESCRIPTION OF PROCEDURE: Greyson was seen in the preoperative holding area. The correct site, side, and procedure were identified. We came back to the operating room, the arm was prepped and draped in the usual fashion, and a time- out was performed. The arm was exsanguinated with the Esmarch and the tourniquet was inflated to 250 mmHg. I reopened his prior incision and it was extended about a centimeter or two distally and proximally. Dissection was carried down. Great care was taken to preserve the medial antebrachial cutaneous nerve. There were multiple branches of that nerve that were dissected out and preserved throughout the entirety of the procedure. I went ahead and located the nerve just proximal to what had been Dutton's ligament. Dissection was carried out along the course of the nerve, freeing up the nerve of any scar tissue that had formed adhesions to the nerve. The release was carried out proximally up past where would have been the arcade of [place] and all the way down distally to the two heads of the FCU. I was able to place a vessel loop around the nerve and perform a neurolysis so that I could get the nerve up into the transposed position. I did have to dissect out a little bit of the motor branch to the FCU muscle in order to gain good transposition link. Once the nerve was looking nice and cleaned up and neurolysed, I went ahead and raised step-cut fascial flaps in the flexor pronator fascia. The leading edge of the FCU fascia was excised. The medial intermuscular septum was excised. The septi in between the flexor pronator muscles were excised. At this point, I had a nice muscular bed to transpose the nerve on. I went ahead and transposed it. I then took an Axoguard 7 x 40 mm nerve protector and wrapped the nerve. This was secured with multiple 6-0 Prolene sutures taking great care not to wrap to the nerve. With the nerve in the transposed position and with the wrap in place, I went ahead and sewed my fascial flaps in the end to keep and to provide a very loose fascial seal over the nerve to keep the nerve up in the transposed position. At this point, everything was looking very nice. The medial antebrachial cutaneous nerve branches had been preserved throughout the entirety of the procedure. I went ahead and obtained hemostasis with the Bovie and the bipolar. The wound was irrigated out. The subcutaneous tissue was reapproximated with 3-0 Vicryl. The skin was closed with 3-0 Monocryl and Steri -Strips. 0.25% Marcaine was infiltrated all about the operative area. The wound was dressed with Xeroform, 4x4's, an ABD at the elbow, sterile Webril, and then a long-arm splint with a lateral buttress was applied. He was then taken to the recovery room in stable condition. [id number]/CPS #: [id number] MTDRusty
== END 2018-10-31 13:31 | disposition home or self-care (01) ==
LOC: OREAST 07:29
PROVIDERS: ATTEND Orthopaedic Surgery Hand Surgery
DX: G56.21 Lesion of ulnar nerve, right upper limb (principal); M77.12 Lateral epicondylitis, left elbow; M77.11 Lateral epicondylitis, right elbow; Z87.891 Personal history of nicotine dependence
CPT/HCPCS: A9270-GY; C1763; J0690; J1100; J1885; J2250; J2405; J2704; J3010; J3490

== ENCOUNTER 2018-12-08 15:40 | Emergency (ER) | payer OTHER ==
[2018-12-08 16:03] VITALS: BP 145/91
--- NOTE | 2018-12-08 16:27 | UC ---
Back Pain HPI - HPI Summary HPI Summary: 3 days of severe lower back pain and L lower leg/foot burning. Pt has hx of 2 herniated discs, bulging discs, and deterioration w/ subsequent sciatic nerve pain based on MRI from this past summer. HE is having trouble ambulating due debra pain. Burning, tingling from L toes to his R lower back. - History of Current Complaint Chief Complaint: UCBackPain Stated Complaint: SCIATIC PAIN RIGHT SIDE Time Seen by Provider: 12/08/18 16:13 Hx Obtained From: Patient Pain Intensity: 9 Pain Scale Used: 0-10 Numeric Character: Burning Aggravating Factor(s): Movement, Lifting, Bending, Walking Alleviating Factor(s): Rest Associated Signs And Symptoms: Positive: Pain with Weight Bearing. Negative: Weakness, Numbness, Bladder Incontinence, Bowel Incontinence - Allergies/Home Medications Allergies/Adverse Reactions: Allergies Allergy/AdvReac Type Severity Reaction Status Date / Time No Known Allergies Allergy Verified 12/08/18 16:03 Home Medications: Home Medications Acetaminophen [Tylenol Extra Strength] 1 tab PO ONCE 12/08/18 [History Confirmed 12/08/18] Cyclobenzaprine TAB* [Flexeril 10 MG TAB*] 1 tab PO ONCE 12/08/18 [History Confirmed 12/08/18] Naproxen Sodium [Aleve] 1 tab PO ONCE 12/08/18 [History Confirmed 12/08/18] PMH/Surg Hx/FS Hx/Imm Hx - Additional Past Medical History Additional PMH: chronic pack pain per pt Previously Healthy: Yes - Surgical History Surgical History: Yes Surgery Procedure, Year, and Place: TONSILLECTOMY A CHILD. 2017 RIGHT ELBOW SURGERY-epicondylitis [facility]. 2016 Left middle finger tendon repair (laceration ) [facility]. 2016 CMCCARPAL TUNNEL RELEASE - BILATERAL. 2016 NERVE RELEASE BILATERAL ARMS [facility]. R arm nerve relocation oct 2018 - Family History Known Family History: Positive: Hypertension, Diabetes - Social History Alcohol Use: Rare Alcohol Amount: FEW EVERY FEW MONTHS Substance Use Type: None Substance Use Comment - Amount & Last Used: once in a great while, not often, LAST WAS 02 AM 10/30/2018, WILL REFRAIN Smoking Status (MU): Former Smoker Type: Cigarettes Amount Used/How Often: 1 ppd for a few years Length of Time of Smoking/Using Tobacco: 4 years Have You Smoked in the Last Year: No When Did the Patient Quit Smoking/Using Tobacco: 04/12/14 Household Exposure Type: Cigarettes Review of Systems All Other Systems Reviewed And Are Negative: Yes Constitutional: Negative: Fever, Chills, Fatigue Skin: Negative: Rash, Bruising Respiratory: Positive: Negative Cardiovascular: Positive: Negative Musculoskeletal: Positive: Arthralgia - back pain Neurological: Positive: Paresthesia - L foot, L leg and R lower back. Negative : Other - denies saddle paresthesias or urinary incontinence. Physical Exam Triage Information Reviewed: Yes Appearance: Pain Distress Vital Signs: Initial Vital Signs Temp 99.8 F 12/08/18 15:57 Pulse 112 12/08/18 15:57 Resp 16 12/08/18 15:57 BP 145/91 12/08/18 15:57 Pulse Ox 100 12/08/18 15:57 Vital Signs Reviewed: Yes Musculoskeletal: Positive: Other: - unable to get out of wheel chair onto exam table due to pain. no tenderness at knees, spinous processeses Neurological: Positive: Alert, Muscle Tone Normal Skin: Negative: Rashes Back Pain Course/Dx - Course Course Of Treatment: Lower back pain and numbness down his L leg into lateral part of foot x3 days. REports having MRI showing several herniated discs and bulges. He is in clear pain distress today but denies any red flags. Pt did not sign release so unable to see MRI but I did review lumbarsacral views of xray after a fall back in 2018 and it was unremarkable. He was told to go to PT but is having a hard time finding order from [facility]. PLAN is to tx his immediate pain w/ medrol dose pack, and gabapentin and toradol. He did request 'stronger pain meds' and I offered gabapentin, toradol, and steroid. I checked istop for that reason Reference #: [id number] and he did receive multiple short scripts of opidates throughout Oct x3. Opiates do not tx this type of pain unfortunately. vitals show he is in pain but afebrile. - Differential Dx/Diagnosis Differential Diagnosis/HQI/PQRI: Arthritis, Cauda Equina Syndrome, Herniated Disc, Strain, Sprain Provider Diagnosis: Sciatic leg pain Discharge ED - Sign-Out/Discharge Documenting (check all that apply): Patient Departure All imaging exams completed and their final reports reviewed: No Studies - Discharge Plan Condition: Good Disposition: HOME Prescriptions: Gabapentin 300 mg PO TID 30 Days #90 capsule methylPREDNISolone [Medrol] 4 mg PO DAILY #1 tab.ds.pk Patient Education Materials: Sciatica (ED) Referrals: [facility] [place] Physical therapy,PT [Medical Doctor] - Additional Instructions: 1-Please follow up with your pcp to discuss your options 2-the medrol dose pack should help any inflammatory pain. 3-i've added gabapentin for the nerve pain, your pcp can consider increasing if not helping at this low dose. 4-i've ordered PT for you. 5-If you develop any saddle numbness in the groin/private area or you develop urinary incontinence please go urgently to the ED - Billing Disposition and Condition Condition: GOOD Disposition: Home
[2018-12-08] MEDS ORDERED: Ketorolac INJ* 30 MG/ML 1 ML VIAL IM ONE (16:59)
== END 2018-12-08 17:23 | disposition home or self-care (01) ==
LOC: UCCORT 15:40
DX: M54.32 Sciatica, left side (principal); M51.9 Unspecified thoracic, thoracolumbar and lumbosacral intervertebral disc disorder; Z87.891 Personal history of nicotine dependence
CPT/HCPCS: 96372; 99212; G0463; J1885

== ENCOUNTER 2018-12-10 07:39 | Emergency (ER) | payer OTHER ==
[2018-12-10 07:55] VITALS: BP 134/74
--- NOTE | 2018-12-10 08:04 | UC ---
"UC General HPI - HPI Summary HPI Summary: Patient presents to urgent care for reevaluation of back pain. Patient's is a history of back pain sciatica. Patient states he does have herniated discs based on an MRI he had done at [facility]. Patient states one week ago he lifted something heavy at work and exacerbated the pain. This following an injury he had in the summer. Patient states he went to [place] emergency department with a gave him IM Toradol sent him only 2 pills. Patient states he wasn't getting any better so he came to urgent care on Sunday. Patient has prescription for gabapentin, naproxen, Flexeril, and prednisone. Patient states these aren't helping. Patient states his leg is giving out and he has had several falls in the last 5 days. Patient states at 1:00 this morning he was attempting to urinate. Patient states he had a strain to urinate when his legs gave out and he fell striking his head. Patient denies loss of consciousness. No blood HEENT. Neck pain. Patient did not take anything for his pain today. Patient states he drove himself here using his left foot. Patient medication review this visit. Patient has never had back surgery. - History of Current Complaint Chief Complaint: UCBackPain Stated Complaint: RT LEG/BACK INJURY Hx Obtained From: Patient, Medical Records, Other: - Jasmyne Bhandari | Reference #: [id number] Onset/Duration: Sudden Onset Onset Severity: Moderate Current Severity: Moderate Pain Intensity: 9 - Allergy/Home Medications Allergies/Adverse Reactions: Allergies Allergy/AdvReac Type Severity Reaction Status Date / Time No Known Allergies Allergy Verified 12/10/18 07:49 PMH/Surg Hx/FS Hx/Imm Hx Previously Healthy: Yes - Surgical History Surgical History: Yes Surgery Procedure, Year, and Place: TONSILLECTOMY A CHILD. 2017 RIGHT ELBOW SURGERY-epicondylitis [facility]. 2016 Left middle finger tendon repair (laceration ) [facility]. 2016 CMCCARPAL TUNNEL RELEASE - BILATERAL. 2016 NERVE RELEASE BILATERAL ARMS [facility]. R arm nerve relocation oct 2018 - Family History Known Family History: Positive: Hypertension, Diabetes - Social History Occupation: Employed Full-time Lives: With Family Alcohol Use: Rare Alcohol Amount: FEW EVERY FEW MONTHS Substance Use Type: None Substance Use Comment - Amount & Last Used: once in a great while, not often, LAST WAS 02 AM 10/30/2018, WILL REFRAIN Smoking Status (MU): Former Smoker Type: Cigarettes Amount Used/How Often: 1 ppd for a few years Length of Time of Smoking/Using Tobacco: 4 years Have You Smoked in the Last Year: No When Did the Patient Quit Smoking/Using Tobacco: 04/12/14 Household Exposure Type: Cigarettes Review of Systems All Other Systems Reviewed And Are Negative: Yes Constitutional: Positive: Negative Skin: Positive: Negative Eyes: Positive: Negative Genitourinary: Positive: Other - Patient with difficulty with urinating. No incontinence Motor: Positive: Other - Back pain Musculoskeletal: Positive: Other: - And right leg weakness, giving out, pain Neurological: Positive: Weakness, Paresthesia, Numbness Physical Exam - Summary Physical Exam Summary: Vital Signs Reviewed: Yes A+Ox3, obvioius discomfort, tearful Eyes: Conjunctiva injected- tearful ENT: Hearing grossly normal TM x 2 clear, mmmoist Neck: Positive: Supple Respiratory: Positive: No respiratory distress, No accessory muscle use + CTA throughout no w/r Cardiovascular: RRR nl s1, s2 no m/r 2+ PT b/l abd soft + BS nt/nd no guarding, no distension Musculoskeletal Exam: RACHEL x 4 without difficulty Strength Intact, ROM Intact Neurological: Positive: Alert, + sensation throughout Psychological: Positive: Normal Response To examiner Skin: Positive: no rash, no ecchymosis Triage Information Reviewed: Yes Vital Signs: Initial Vital Signs Temp 98.2 F 12/10/18 07:50 Pulse 93 12/10/18 07:50 Resp 16 12/10/18 07:50 BP 134/74 12/10/18 07:50 Pulse Ox 100 12/10/18 07:50 Re-Evaluation - Re-Evaluation First Eval Comment: Nursing unable to give line. We'll change orders time Toradol. She has emesis at the bedside aware. Patient did sign a medical release to get his MRI study from [facility]. We'll fax to [facility]. Patient agreeable with plan Discharge ED - Discharge Plan Referrals: Brook Meyer MD [Primary Care Provider] -"
[2018-12-10] MEDS ORDERED: Morphine 10 MG/ML VIAL (1 ml) IV ONE (08:47)
[2018-12-10] MEDS ORDERED: Ketorolac INJ* 30 MG/ML 1 ML VIAL IV PUSH ONE (08:47)
[2018-12-10] MEDS ORDERED: NS 0.9% 1000 ML** 1,000 ML IV ONE (08:48)
[2018-12-10] MEDS ORDERED: Ondansetron INJ* 2 MG/ML VIAL IV ONE (08:48)
[2018-12-10] MEDS ORDERED: Ketorolac INJ* 30 MG/ML 1 ML VIAL IM ONE (08:54)
== END 2018-12-10 08:59 | disposition short-term general hospital (02) ==
LOC: UCCORT 07:39
DX: M54.9 Dorsalgia, unspecified (principal); M51.9 Unspecified thoracic, thoracolumbar and lumbosacral intervertebral disc disorder; R39.16 Straining to void; M54.2 Cervicalgia; R53.1 Weakness; M79.604 Pain in right leg; R20.2 Paresthesia of skin; R20.0 Anesthesia of skin; R11.10 Vomiting, unspecified; Z87.891 Personal history of nicotine dependence; Z87.828 Personal history of other (healed) physical injury and trauma
CPT/HCPCS: 96372; 99213; G0463; J1885

== ENCOUNTER 2018-12-10 09:45 | Emergency (ER) | payer OTHER ==
[2018-12-10] MEDS ORDERED: Ketorolac INJ* 30 MG/ML 1 ML VIAL IV ONE (10:12)
[2018-12-10] MEDS ORDERED: Ondansetron INJ* 2 MG/ML VIAL IV ONE (10:12)
[2018-12-10] MEDS ORDERED: Morphine 4 MG/ML VIAL (1 ml) 4 MG/ML VIAL IV ONE (10:12)
--- NOTE | 2018-12-10 10:29 | ED ---
Back Pain - HPI Summary HPI Summary: Pt is a 33 y/o M w hx chronic back pain, sciatica who is presenting to the ED with a chief complaint of back pain initially onset months ago, however worse over the past 1-2 weeks. He states he had been receiving "shots in his back", but the pain worsened to the point of getting an MRI in August at [facility] where they found two herniated discs with deterioration. The pain has increased recently, and he notes that this morning he experienced urinary hesitancy around 0100 this morning, and he fell d/t weakness in his legs. He notes pain in back of his R leg, paresthesia throughout his R leg, and pain on his L foot. He also notes a subjective fever at home. No hx IVDU. No recent trauma. Has tried multiple medications including toradol, steroids, without much relief. Went to [facility] and sent to ED for further evaluation. - History of Current Complaint Chief Complaint: EDBackInjuryPain Stated Complaint: BACK PAIN Time Seen by Provider: 12/10/18 09:53 Hx Obtained From: Patient Onset/Duration: Gradual Onset, Lasting Weeks, Still Present Onset/Duration: Started Weeks Ago, Still Present Timing: Constant, Lasting Weeks Back Pain Location: Is Diffuse - lower Severity Initially: Moderate Severity Currently: Severe Pain Intensity: 9 Pain Scale Used: 0-10 Numeric Aggravating Symptom(s): Movement Alleviating Symptom(s): Nothing Associated Signs And Symptoms: Positive: Fever, Weakness, Numbness, Tingling, Other - urinary retention - Allergies/Home Medications Allergies/Adverse Reactions: Allergies Allergy/AdvReac Type Severity Reaction Status Date / Time No Known Allergies Allergy Verified 12/10/18 07:49 Home Medications: Home Medications Azithromyxin SUSHANT (NF) [Z-Sushant (Zithromax) 250 mg tabs #6] 1 tab PO DAILY [History Confirmed 12/10/18] PMH/Surg Hx/FS Hx/Imm Hx Previously Healthy: Yes Endocrine/Hematology History: Denies: Hx Diabetes Cardiovascular History: Reports: Other Cardiovascular Problems/Disorders - racing heart, recently last occurred 3 weeks ago, holter monitor test done Denies: Hx Hypertension, Hx Pacemaker/ICD Respiratory History: Denies: Other Respiratory Problems/Disorders GI History: Denies: Other GI Disorders History: Denies: Other Problems/Disorders Musculoskeletal History: Reports: Hx Tendonitis - Carpal tunnel bilateral, left > right, right wrist to be done later date, Other Musculoskeletal History - Bilateral epicondylitis Sensory History: Denies: Hx Contacts or Glasses, Hx Hearing Aid Opthamlomology History: Denies: Hx Contacts or Glasses Neurological History: Reports: Other Neuro Impairments/Disorders - carpal tunnel bilateral wrists Denies: Hx Nerve Disease Psychiatric History: Denies: Hx Panic Disorder - Surgical History Surgery Procedure, Year, and Place: TONSILLECTOMY A CHILD. 2017 RIGHT ELBOW SURGERY-epicondylitis [facility]. 2016 Left middle finger tendon repair (laceration ) [facility]. 2016 CMCCARPAL TUNNEL RELEASE - BILATERAL. 2016 NERVE RELEASE BILATERAL ARMS [facility]. R arm nerve relocation oct 2018 Hx Anesthesia Reactions: No Infectious Disease History: No Infectious Disease History: Denies: Traveled Outside the [place] in Last 30 Days - Family History Known Family History: Positive: Hypertension, Diabetes - Social History Alcohol Use: Rare Alcohol Amount: FEW EVERY FEW MONTHS Hx Substance Use: Yes Substance Use Type: Reports: Marijuana Substance Use Comment - Amount & Last Used: to help with pain. no hx IVDA Hx Tobacco Use: Yes Smoking Status (MU): Former Smoker Type: Cigarettes Amount Used/How Often: 1 ppd for a few years Length of Time of Smoking/Using Tobacco: 4 years Have You Smoked in the Last Year: No Review of Systems Positive: Fever Positive: Myalgia Positive: Weakness, Paresthesia, Numbness All Other Systems Reviewed And Are Negative: Yes Physical Exam - Summary Physical Exam Summary: Constitutional: Well-developed, Well-nourished, Alert. Mild distress secondary to pain. Skin: Warm, Dry HENT: Normocephalic; Atraumatic Eyes: Conjunctiva normal Neck: Musculoskeletal ROM normal neck. (-) JVD, (-) Nuchal rigidity Cardio: Rhythm regular, rate normal, Heart sounds normal; Intact distal pulses; Radial pulses are 2+ and symmetric. (-) Murmur Pulmonary/Chest wall: Effort normal. (-) Respiratory distress, (-) Wheezes, (-) Rales Abd: Soft. (-) Tenderness, (-) Distension, (-) Guarding, (-) Rebound Musculoskeletal: (-) Edema. Lower midline lumbar and R sacroiliac tenderness on the R side. Lymph: (-) Cervical adenopathy Neuro: Alert, PERRL, Oriented x3, Cranial nerves II-XII are grossly intact. Strength 5/5 BUE, 4/5 dorsiflexion in R foot, 4/5 R hip 2/2 pain, 5/5 LLE. Decreased sensation to the lateral aspect of the RLE, No saddle anesthesia (Rn Jameson present for exam). Ambulates w pain, favours RLE. Psych: Mood and affect Normal Triage Information Reviewed: Yes Vital Signs On Initial Exam: Initial Vitals Temp Pulse Resp BP Pulse Ox 98.5 F 77 18 136/92 98 12/10/18 09:46 12/10/18 09:46 12/10/18 09:46 12/10/18 09:46 12/10/18 09:46 Vital Signs Reviewed: Yes Procedures - Sedation Patient Received Moderate/Deep Sedation with Procedure: No Diagnostics - Vital Signs Vital Signs Temp Pulse Resp BP Pulse Ox 12/10/18 09:46 98.5 F 77 18 136/92 98 - Laboratory Lab Statement: Any lab studies that have been ordered have been reviewed, and results considered in the medical decision making process. - Radiology T-spine MRI Radiology Interpretation Completed By: Radiologist Summary of Radiographic Findings: 1. Thin multilevel disc extrusions as above do not cause severe spinal canal stenosis. There is no cyst significant neural foraminal stenosis throughout. 2. The thoracic spinal cord is normal in signal and volume. 3. A 2.4 cm T2 hyperintense focus along the dome of the liver is incompletely evaluated. It is likely arborist representative of a hepatic cyst; however, this could be better evaluated with upper quadrant ultrasound. ED physician has reviewed this report. L-spine MRI Radiology Interpretation Completed By: Radiologist Summary of Radiographic Findings: MULTILEVEL SPONDYLOSIS WITH L4-L5 AND L5-S1 DISC EXTRUSIONS ABOVE. THE LARGE L5-S1 EXTRUSION CONTACTS THE DESCENDING RIGHT S1 NERVE ROOT. ED physician has reviewed this report. Re-Evaluation - Re-Evaluation 1st re-eval Re-Evaluation Time: 12:34 Change: Unchanged Comment: Post void residual: 0. MRI w/o cord compression, does have herniated discs, worst at L5-S1 but minimally changed from prior. Has seen NSGY in [place] who recommended PT before surgery. D/w him about MRI findings. He states he already has a PT referral. I will refer him to Dr. Rodas of neurosurgery for follow-up. His mother will be picking him up. Back Pain Course/Dx - Course Course Of Treatment: 33 y/o M w hx back pain and sciatica p/w worsening pain. Went to 12/08 and 12/10, had MRI this summer with 2 herniated dics. Hx sciatic nerve pain. Given Medrol dose pack. Gabapentin, PT. MRI on 08/14/2018 showed disc protrusion at L5-S1 and L4-L5 central canal stenosis. Also showed disc protrusions at L4-L5 and S1 with impinging on exiting nerve roots. Went to today had LE weakness, straining with urination, felt his legs given out. PE here with R foot weakness, reporting bladder retention. Check bladder scan. Given worsening symptoms and new bladder symptom, will check MRI - Diagnoses Provider Diagnoses: Lumbar back pain, Sciatica Discharge ED - Sign-Out/Discharge Documenting (check all that apply): Patient Departure - Discharge Plan Condition: Stable Disposition: HOME Prescriptions: oxyCODONE/Acetamin 5/325 MG* [Percocet 5/325 TAB*] 1 tab PO Q6H PRN 3 Days #12 tab MDD 4 PRN Reason: Pain Patient Education Materials: Sciatica (ED) Referrals: Brook Meyer MD [Primary Care Provider] - Aramis Hyde MD [Medical Doctor] - Additional Instructions: You were seen in the emergency department for lower back pain. Your MRI showed a disc bulge at L5-S1 that is 9 mm in length (slightly increased from 8 mm on your prior in August) Please follow up with our neurosurgeon, Dr. Hyde. Please go to physical therapy. Please return for worsening pain, numbness or new weakness, bowel or bladder incontinence, difficulty using the restroom or if you're concerned If any studies were not completed at the time of discharge you will be called with the relevant results. Please follow up with your primary care doctor in next 2-3 days. It was a pleasure taking care of you today. - Billing Disposition and Condition Condition: STABLE Disposition: Home - Attestation Statements Document Initiated by Scribe: Yes Documenting Scribe: Kristie Greawl Provider For Whom Scribe is Documenting (Include Credential): Adama Lozano MD. Scribe Attestation: I, Kristie Grewal, scribed for Adama Lozano MD. on 12/10/18 at 1326. Scribe Documentation Reviewed: Yes Provider Attestation: The documentation as recorded by the scribe, Kristie Grewal accurately reflects the service I personally performed and the decisions made by me, Adama Lozano MD. Status of Scribe Document: Viewed
[2018-12-10] MEDS ORDERED: oxyCODONE/Acetamin 5/325 MG* TAB PO ONE (12:24)
[2018-12-10 13:17] VITALS: BP 150/96
== END 2018-12-10 13:16 | disposition home or self-care (01) ==
LOC: ED 09:45
DX: M54.40 Lumbago with sciatica, unspecified side (principal); Z87.891 Personal history of nicotine dependence
CPT/HCPCS: 72146; 72148; 96374; 96375; 99283; A9270-GY; J1885; J2270; J2405

== ENCOUNTER 2018-12-16 08:09 | Emergency (ER) | payer OTHER ==
[2018-12-16 09:08] VITALS: BP 153/88
--- NOTE | 2018-12-16 09:35 | UC ---
Back Pain HPI - HPI Summary HPI Summary: 33 yo with progressive back pain for several months, with MRI findings on of L4-5 and L5-S1 disc protrusions with 9mm disc extrusion with contact with S1 nerve root on the right. He is completing a medrol dose pack without relief. He has used ibuprofen and naproxen over maximum daily recommendations, with resultant vomiting x 1 yesterday. Pain has not responded to gabapentin and he has stopped use of it. Pending evaluation with Dr. Hess on Sunday. He has not had a pain clinic referral as of yet. Muscle relaxants (has rx) combined with oxycodone have been the most effective. - History of Current Complaint Chief Complaint: UCBackPain Stated Complaint: BACK COMPLAINT Time Seen by Provider: 12/16/18 09:34 Hx Obtained From: Patient Onset/Duration: Gradual Onset, Lasting Weeks, Worse Since - past week Timing: Constant, Lasting Days Severity Initially: Severe Severity Currently: Severe Pain Intensity: 10 Back Pain: Is Discrete @ - low back, Radiates To - right leg, with difficulty walking. Character: Sharp - stabbing pain in right calf to foot., Throbbing, Burning Aggravating Factor(s): Movement, Walking Alleviating Factor(s): Rest, Position Associated Signs And Symptoms: Positive: Negative, Tingling - Risk Factors AAA Risk Factors: Negative TAD Risk Factors: Negative Cauda Equina Risk Factors: Negative Epidural Abscess Risk Factors: Negative - Allergies/Home Medications Allergies/Adverse Reactions: Allergies Allergy/AdvReac Type Severity Reaction Status Date / Time No Known Allergies Allergy Verified 12/16/18 08:59 Home Medications: Home Medications Ibuprofen 1,400 mg PO ONCE 12/16/18 [History Confirmed 12/16/18] Naproxen Sodium [Naproxen ER 500 MG TAB] 2 tab PO ONCE 12/16/18 [History Confirmed 12/16/18] PMH/Surg Hx/FS Hx/Imm Hx Previously Healthy: Yes - Surgical History Surgical History: Yes Surgery Procedure, Year, and Place: TONSILLECTOMY A CHILD. 2017 RIGHT ELBOW SURGERY-epicondylitis [facility]. 2016 Left middle finger tendon repair (laceration ) [facility]. 2016 CMCCARPAL TUNNEL RELEASE - BILATERAL. 2016 NERVE RELEASE BILATERAL ARMS [facility]. R arm nerve relocation oct 2018 - Family History Known Family History: Positive: Hypertension, Diabetes - Social History Occupation: Disabled - currently not working due to back pain. Lives: Alone Alcohol Use: Rare Alcohol Amount: FEW EVERY FEW MONTHS Substance Use Type: Marijuana Substance Use Comment - Amount & Last Used: to help with pain. no hx IVDA Smoking Status (MU): Former Smoker Type: Cigarettes Amount Used/How Often: 1 ppd for a few years Length of Time of Smoking/Using Tobacco: 4 years Have You Smoked in the Last Year: No When Did the Patient Quit Smoking/Using Tobacco: 04/12/14 Household Exposure Type: Cigarettes Review of Systems All Other Systems Reviewed And Are Negative: Yes Constitutional: Positive: Fatigue - cannot sleep Skin: Positive: Negative ENT: Positive: Negative Respiratory: Positive: Negative Cardiovascular: Positive: Negative Musculoskeletal: Positive: Arthralgia Physical Exam Triage Information Reviewed: Yes Appearance: Ill-Appearing - looks fatigued, Pain Distress - moderate to sever. Vital Signs: Initial Vital Signs Temp 98.7 F 12/16/18 09:01 Pulse 106 12/16/18 09:01 Resp 15 12/16/18 09:01 BP 153/88 12/16/18 09:01 Pulse Ox 100 12/16/18 09:01 ENT: Positive: Normal ENT inspection Respiratory: Positive: Lungs clear, Normal breath sounds Cardiovascular: Positive: RRR Musculoskeletal Exam: Other - antalgic gait, pain with lifting right leg. Musculoskeletal: Positive: Strength Intact, ROM Limited @ - lumbar spine. Neurological: Positive: Alert, Muscle Tone Normal Psychological Exam: Normal Skin Exam: Normal Back Pain Course/Dx - Course Course Of Treatment: oxycodone for short term use. Reviewed NUTRITION CONSULTANT, had oxycodone #12 on 12/10/12 as lost rx. Previous rx's in keeping with hx. Ref # [id number]. Follow up with Dr. Hess and begin pain clinic referral. - Differential Dx/Diagnosis Differential Diagnosis/HQI/PQRI: Herniated Disc Provider Diagnosis: Herniation of intervertebral disc between L5 and S1 Discharge ED - Sign-Out/Discharge Documenting (check all that apply): Patient Departure All imaging exams completed and their final reports reviewed: No Studies - Discharge Plan Condition: Stable Disposition: HOME Prescriptions: Oxycodone HCl/Acetaminophen [Percocet 5-325 mg Tablet] 1 each PO Q6H PRN #20 tablet MDD 4 PRN Reason: Pain - Severe Referrals: Brook Meyer MD [Primary Care Provider] - Robbie Lizarraga MD [Medical Doctor] - Additional Instructions: Your blood pressure is elevated today, likely as a result of pain. It should be checked again at your follow up visit. Please contact the pain clinic (Dr. Lizarraga) to arrange a visit, as it is highly likely that you will need their support for control of pain. The visit can be cancelled if it is not necessary. You have adequate oxycodone to last until your neurosurgery vsiit on Sunday. Max daily dose is 4 tabs. Continue use of flexeril. Use naproxen twice daily and STOP use of ibuprofen--only on anti-inflammatory should be used at a time. - Billing Disposition and Condition Condition: STABLE Disposition: Home
== END 2018-12-16 10:16 | disposition home or self-care (01) ==
LOC: UCCORT 08:09
DX: M51.27 Other intervertebral disc displacement, lumbosacral region (principal); Z87.891 Personal history of nicotine dependence
CPT/HCPCS: 99212; G0463

== ENCOUNTER 2019-01-02 05:38 | Observation (INO) | payer OTHER ==
[~2019-01-02 05:38] MED LIST changes: -Lactated Ringers 1000 ML Bag* 1,000 ML IV SCH
[2019-01-02] MEDS ORDERED: Dexamethasone IV* 4 MG/ML 1 ML (4 MG) IV SLOW PU ONE (06:00)
[2019-01-02] MEDS ORDERED: Famotidine IV* 10 MG/ML 2 ML (20 mg) IV ONE (06:00)
[2019-01-02] MEDS ORDERED: Lactated Ringers 1000 ML Bag* 1,000 ML IV SCH (06:00)
[2019-01-02] MEDS ORDERED: Dexamethasone IV* 4 MG/ML 1 ML (4 MG) ONE (06:30)
[2019-01-02] MEDS ORDERED: Famotidine IV* 10 MG/ML 2 ML (20 mg) ONE (06:31)
[2019-01-02] MEDS ORDERED: Midazolam* 1 MG/ML 5 ML VIAL (5 MG) ONE (07:19)
[2019-01-02] MEDS ORDERED: fentaNYL* 50 MCG/ML 2 ML VIAL (100 MCG VIAL) ONE ×4 (07:19→10:52)
[2019-01-02] MEDS ORDERED: Propofol* 10 MG/ML 20 ML BTL ONE (07:20)
[2019-01-02] MEDS ORDERED: Lidocaine 2% PF * 5 ML VIAL ONE (07:20)
[2019-01-02] MEDS ORDERED: Rocuronium* 10 MG/ML VIAL ONE (07:21)
[2019-01-02] MEDS ORDERED: Bacitracin INJECTION* 50,000 UNITS ONE (07:26)
[2019-01-02] MEDS ORDERED: Bupivacaine 0.25% EPI 200,000* 30 ML SDV ONE (07:26)
[2019-01-02] MEDS ORDERED: HYDROcodone/ACETAMIN 5-325 MG* 1 TAB PO PRN (08:29)
[2019-01-02] MEDS ORDERED: oxyCODONE/Acetamin 5/325 MG* TAB PO PRN (08:29)
[2019-01-02] MEDS ORDERED: Ibuprofen TAB* 400 MG PO PRN (08:29)
[2019-01-02] MEDS ORDERED: fentaNYL* 50 MCG/ML 2 ML VIAL (100 MCG VIAL) IV PRN (08:29)
[2019-01-02] MEDS ORDERED: DiMENhydriNATE IV* 50 MG/ML VIAL IV PUSH PRN (08:29)
[2019-01-02] MEDS ORDERED: Naloxone* 0.4 MG/ML 1 ML VIAL IV PRN (08:29)
[2019-01-02] MEDS ORDERED: Metoprolol Tartrate IV* 1 MG/ML 5 ML VIAL ONE (08:59)
[2019-01-02] MEDS ORDERED: Ondansetron INJ* 2 MG/ML VIAL ONE (09:02)
[2019-01-02] MEDS ORDERED: Glycopyrrolate IV* 0.2 MG/ML 1 ML VIAL ONE (09:04)
[2019-01-02] MEDS ORDERED: Neostigmine Methylsulfate* 3 MG/3 ML SYRINGE ONE (09:04)
[2019-01-02] MEDS ORDERED: Ondansetron INJ* 2 MG/ML VIAL IV PRN (10:28)
[2019-01-02] MEDS ORDERED: oxyCODONE TAB* 5 MG TAB PO PRN (10:28)
[2019-01-02] MEDS ORDERED: Magnesium Hydroxide LIQ* 30 ML UDC PO PRN (10:28)
[2019-01-02] MEDS ORDERED: oxyCODONE/Acetamin 5/325 MG* TAB ONE (10:52)
[2019-01-02] MEDS: Acetaminophen TAB* 325 MG PO PRN ×2 (14:14→20:53)
[2019-01-02] MEDS: Cyclobenzaprine TAB* 10 MG PO PRN ×2 (14:14→22:36)
--- NOTE | 2019-01-02 14:32 | OP ---
DATE OF OPERATION: 01/02/19 - ROOM #331 DATE OF : 87 SURGEON: Aramis Hyde MD [employer]ASH [employer]OP FARMER: RICHIE Hannah ANESTHESIA: General. PRE-OP DIAGNOSIS: Right L5-S1 herniated nucleus pulposus with slight extension to the left side. POST-OP DIAGNOSIS: Right L5-S1 herniated nucleus pulposus with slight extension to the left side. OPERATIVE PROCEDURE: The patient underwent a right L5-S1 MIS discectomy and decompressive laminectomy of L5 with extension of discectomy to the contralateral side. ESTIMATED BLOOD LOSS: 20 cc. COMPLICATIONS: None. SUMMARY: The patient is a very pleasant 53-year-old gentleman who experienced a severe back pain radiating to the right lower extremity after trying to open the door in his vehicle. The patient had MRI findings consistent with a right L5- S1 herniated nucleus pulposus with slight extension to the left side and after failing conservative treatment modalities, he was offered the option of surgical intervention. After explaining expectation, limitations, possible complications of the procedure to the patient and his family, including his mother and his fiancee with complications including but not limited to bleeding , infection, risk of injury to adjacent structures,coma, paralysis, , need for additional procedures, anesthesia risk, stroke, blindness, cancer, instability, adjacent level disease, spinal fluid leak, disc herniation, discitis, loss of bladder or bowel control, injury to intraabdominal contents, deep venous thrombosis, pulmonary embolism, need for prolonged ICU stay, prolonged hospitalization, prolonged rehabilitation, need for additional procedures in the future, anesthesia risks, the patient was agreeable to proceed with surgery and informed consent was obtained. The patient understood that his condition may not improve, in fact may get worse after surgery and he may need to have additional procedures in the future. He also understood that operative plan may be modified according to intraoperative findings and conditions, and that the case may be abandoned or done in more than one stages. He also understood that he may require additional procedures in the future, prolonged ICU stay, prolonged hospitalization, prolonged rehabilitation. DESCRIPTION OF PROCEDURE: The patient was brought to the operating room and was placed under general anesthesia by the anesthesia team. He was carefully positioned prone on the Ever frame on Doug table and all bony prominences were meticulously padded. His skin was prepped and draped in the standard fashion. After appropriate surgical pause and patient identification, a small paramedian incision type over the L5-S1 disc space and was marked on the skin with the assistance of intraoperative fluoroscopic imaging. The incision site was infiltrated with local anesthetic and the skin was incised with #10 surgical blade. The incision was carried down with Bovie cautery and the dorsal fascia was then incised with #10 surgical blade. Over a series of dilators, the METRx retractor tubular system was inserted and secured over the right L5 sammy lamina and medial L5- S1 facet. The operative microscope was brought into the field and after completing the exposure of sammy lamina, the base over the spinous process, and the medial facet, a high-speed drill and Kerrison punches were used to perform a laminectomy extending towards the other site in order to achieve adequate decompression and allow for adequate retraction and exploration of the of the disc space in both sites. The ligamentum flavum was gently moved with Kerrison punches, the thecal sac and S1 root were readily identified. Under-neath, there was significant subligamentous disc extrusion as expected from the preoperative imaging. After gentle retraction of the nerve and the thecal sac towards the midline, a #10 surgical blade was used to incise the annulus fibrosus and a fragmentectomy and partial discectomy were carried out with the use of pituitary rongeurs. A large amount of disc material was identified to be extruded into the spinal canal. This was gently removed in a piecemeal fashion and all loose fragments of disc material was also removed after the discectomy. The contralateral disc space was explored with the assistance of dental instrument. The thecal sac and the nerve root was found to be free of any pressure phenomenon. Intraoperative microscopic imaging confirmed the appropriate surgical level, and after copious irrigation, confirmation of meticulous hemostasis and meticulous inspection, the tubular retractor was gently removed. Prior to removal of the METRx retractor, Valsava maneuver was performed and we did not detect any signs of CSF leak or any epidural hemorrhage. The dorsal fascia was approximated with 0 interrupted Vicryl suture while the subcutaneous tissue was approximated with inverted interrupted 2-0 Vicryl sutures. The skin was then covered with Dermabond. A copious irrigation in all spaces and the closure was performed. At the end of the procedure, all counts were reported to be correct. The patient remained hemodynamically stable throughout the case. He was then turned supine, was extubated, and was transferred to Recovery in excellent condition. [id number]/[facility] #: [id number] MTDD
[2019-01-02] MEDS: oxyCODONE TAB* 5 MG TAB PO PRN ×2 (16:45→20:54)
[2019-01-03] MEDS: Acetaminophen TAB* 325 MG PO PRN ×2 (03:44→12:22)
[2019-01-03] MEDS: oxyCODONE TAB* 5 MG TAB PO PRN ×3 (03:45→12:18)
[2019-01-03 12:01] VITALS: BP 134/68
--- NOTE | 2019-01-03 12:58 | PN ---
Progress Note - Progress Note Date of Service: 01/03/19 SOAP: Subjective: []No events ON. Tolerated procedure well yesterday. Preoperative Rt LE pain resolved. Ambulates, Voids. Tolerates PO well. Wants to go home. Objective: []VSS, Afebrile Wound s,c,d AAOx3 ALTAF, CN II-XII grossly intact Motor 5/5 all extremities Sensory grossly intact to light touch. Assessment: []33 yom POD#1 Rt L5-S1 MIS discectomy Plan: []Monitor VS, Neurochecks Encourage ambulation DC today after been seen by Dr Bustamante. Dc instructions were given. Vern Hyde MD
--- NOTE | 2019-01-03 13:28 | CONSULT ---
Consult Consult: INPATIENT PAIN CONSULTATION Greyson Guerra is a 33 year old male. He has no significant past medical history. About 8 months ago, he got up early to drive his girlfriend to work. He noted pain down his right leg after he opened the door of his truck. It continued to bother him and he went to the Urgent Care at [facility]. They did an x- ray. He continued to have pain. Eventually he went to the ER at [facility], and had an MRI. Reportedly there was a bulging disc to the right at L5/S1. He continued to have trouble. He went to the [facility] on December 10 after he fell due to leg weakness and was complaining of hesitancy. He was sent to the ER at [facility]. He had a new MRI on December 10. It showed a large disc herniation at L5/S1 to the right contacting the right S1 nerve root. He was sent to the neurosurgery office and saw Tamir. He had additional imaging and arrangements were made for him to have surgery. He had been started on Oxycodone prior to surgery. He was admitted to [facility] on 01/02/19 and underwent a right L5/S1 discectomy. Since the surgery, most of the pain in his right leg is gone. He still has back pain. I am asked to see him in consultation. PAST MEDICAL HISTORY: Right carpal tunnel release, right ulnar nerve transportation, right arm tendon release Allergies Allergy/AdvReac Type Severity Reaction Status Date / Time No Known Allergies Allergy Verified 12/27/18 10:15 Current Medications Acetaminophen (Tylenol Tab*) 650 mg PO Q4H PRN PRN Reason: MILD PAIN or TEMP > 100.4 Last Admin: 01/03/19 12:22 Dose: 650 mg Cyclobenzaprine HCl (Flexeril Tab*) 10 mg PO Q8H PRN PRN Reason: PAIN. Last Admin: 01/02/19 22:36 Dose: 10 mg Magnesium Hydroxide (Milk Of Magnesia Liq*) 30 ml PO DAILY PRN PRN Reason: CONSTIPATION Ondansetron HCl (Zofran Inj*) 4 mg IV Q6H PRN PRN Reason: NAUSEA/VOMITING Oxycodone HCl (Roxycodone Tab*) 5 mg PO Q4H PRN PRN Reason: moderate pain Last Admin: 01/02/19 12:33 Dose: 5 mg Oxycodone HCl (Roxycodone Tab*) 10 mg PO Q4H PRN PRN Reason: PAIN - SEVERE Last Admin: 01/03/19 12:18 Dose: 10 mg SOCIAL HISTORY: Non smoker, rarer drinker. Smokes marijuana 3 times a week. Lives with fiancee and 3 children in a 2 story apartment. ROS: No SOB or CP Vital Signs Temp Pulse Resp BP Pulse Ox 98.0 F 80 16 134/68 99 01/03/19 11:58 01/03/19 11:58 01/03/19 12:18 01/03/19 11:58 01/03/19 11:58 EXAM: GENERAL: In no distress LUNGS: Clear bilaterally HEART: regular rhythm ABDOMEN: Soft EXTREMITIES: Normal tone NEUROLOGIC: A&O. Able to move all 4 extremities ASSESSMENT: 1. Lumbar Radiculopathy 2. L5/S1 Discectomy PLAN: He seems to be doing well on the oxycodone and can be discharged home with this. He can follow up with me as an outpatient as needed. I reminded him pain medications can be constipating.
[2019-01-03] MEDS: Cyclobenzaprine TAB* 10 MG PO PRN (13:45)
--- NOTE | 2019-01-03 14:52 | DS ---
DISCHARGE SUMMARY: DATE OF ADMISSION: 01/02/19 DATE OF DISCHARGE: 01/03/19 DISPOSITION: Home. PROCEDURE: The patient underwent a right L5-S1 lumbar MIS diskectomy. CONDITION ON DISCHARGE: Good. SUMMARY: The patient is a very pleasant 33-year-old gentleman with complaints of back pain radiating to the right lower extremity. MRI revealed large right L5-S1 disk herniation. After failing conser vative treatment modalities, he was offered the option of surgical intervention. After explaining th e expectations, limitations, and possible complications of the procedure, the patient was agreeable t o proceed with surgery and informed consent was obtained. The patient underwent the above procedure, tolerated the procedure well and on first postoperative day, his preoperative pain was completely re solved. He was able to ambulate, tolerating p.o. well and was able to void. His incisional pain was very well controlled and the patient wanted to go home. Full instructions given to the patient. [id number]/[facility] #: [id number]
== END 2019-01-03 14:00 | disposition home or self-care (01) ==
LOC: OR 05:38 → SSU 11:56
PROVIDERS: ADMIT Neurological Surgery; ATTEND Neurological Surgery
DX: M51.16 Intervertebral disc disorders with radiculopathy, lumbar region (principal); M51.36 Other intervertebral disc degeneration, lumbar region; M51.26 Other intervertebral disc displacement, lumbar region; R16.0 Hepatomegaly, not elsewhere classified; Z87.891 Personal history of nicotine dependence; Z79.899 Other long term (current) drug therapy
CPT/HCPCS: 76000; 96374; A9270-GY; G0378; J1100; J2250; J2405; J2704; J2710; J3010; J3490